=== PATIENT | female | born 1945 | race Caucasian/White ===

== ENCOUNTER 2023-09-26 14:36 | Outpatient (CLI) | payer MEDICARE, SELFPAY ==
--- NOTE | ~2023-09-26 | CT_ITS ---
EXAMINATION: CT abdomen pelvis wo con DATE: 09/26/2023 15:01 INDICATION: Right lower quadrant abdominal pain. TECHNIQUE: Computed tomography (CT) of the abdomen and pelvis was performed without intravenous contr ast. Automated exposure control and iterative reconstruction technique were employed. The dose-length product was 240.16 mGy-cm. COMPARISON: None. FINDINGS: The visualized portions of the lung bases demonstrate mild atelectasis. Calcified left lung nodules are consistent with old granulomatous disease. No pleural effusion. The heart size is normal . There are coronary artery calcifications. There is a small pericardial effusion. The liver and gall bladder are normal. Calcifications in the spleen are consistent with old granulomatous disease. The p ancreas and adrenal glands are normal. There is mild atrophy of the kidneys. There is a 2 mm stone in right kidney. There are no dilated loops of bowel. The appendix is normal. There is calcified athero sclerosis of the aorta and many of the other arteries. There are no pathologically enlarged lymph nod es. There is no free intraperitoneal fluid. There is lumbar levoscoliosis. There is severe lumbar spo ndylosis. IMPRESSION: 1. No etiology for the patient's symptoms. Reviewed, dictated and finalized at location A.
== END 2023-09-26 14:37 ==
LOC: MICIMG 14:40
PROVIDERS: PCP Urology; Visit Provider Urology
DX: R10.31 Right lower quadrant pain (principal)
CPT/HCPCS: 74176

== ENCOUNTER 2024-07-31 18:57 | Emergency (ER) | payer MEDICARE, SELFPAY ==
--- NOTE | ~2024-07-31 | XR_ITS ---
XR chest 1V portable Ordering provider: Mariela Drake MD History: 79 years Female with . Chest Pain . Comparison: None. FINDINGS: MEDIASTINUM: The cardiac silhouette is not enlarged. LUNGS: No infiltrates, effusions or pneumothorax. OTHER: No free air under the diaphragm. Degenerative changes of the spine. IMPRESSION: No acute cardiopulmonary pathology. Reviewed, dictated and finalized at location A.
--- NOTE | ~2024-07-31 | CT_ITS ---
CT abdomen pelvis w con Ordering provider: Mariela Drake MD History: 79 years Female with . epigastric pain . Comparison: September 26, 2023 Technique: CT abdomen and pelvis with IV and without oral contrast. Automated exposure control and it erative reconstruction technique were employed. The dose-length product was 217.69 mGy-cm. 100 mL Omn ipaque 350 was given IV. Findings: VISUALIZED LOWER CHEST: Dependent atelectatic changes. Left Pleural base nodule measuring 7.6 mm is n oted which may be atelectatic or nodule. [address] follow-up advised. Mild to moderate Pericardial effusion is noted. UPPER ABDOMINAL ORGANS: Liver: Normal. Gallbladder: Contracted. CBD measures 8.8 mm. Spleen: Normal. Calcified granulomas. Stomach/duodenum: Normal. Pancreas: Normal. Slightly prominent Pancreatic duct. Adrenals: Normal. Kidneys: Scarring is seen in the left kidney. Prominent vessels seen extending from the left left kid charley to the left iliac artery. Scarring also seen in the right kidney. Minimal fullness of the right r enal pelvis is noted. Tiny calcification seen in the right kidney midpole. PELVIC ORGANS: The bladder is underfilled with thickened wall. BOWEL AND MESENTERY: Colon: Mild sigmoid diverticulosis without diverticulitis. Normal appendix. Small Bowel: Normal. No obstruction. Peritoneum/mesentery: No free air or free fluid. No mesenteric lymphadenopathy. RETROPERITONEUM: Mild atheromatous disease of the abdominal aorta. No retroperitoneal lymphadenopat hy. Congested inferior vena cava is noted. MUSCULOSKELETAL: Superficial soft tissues: The superficial soft tissues are normal. Bones: Age appropriate degenerative changes of the spine. Mild levoscoliosis. Pubic symphysitis. IMPRESSION: 1. Tont-vi-qqootchc pericardial effusion. 2. Nodule in the left lower lobe. 6 months follow-up CT advised. 3. Bilateral scarring in the kidneys. Collateral arteries seen in the left kidney area extending to the left common iliac artery. 4. Slight fullness of the right renal pelvis with parenchymal tiny stone in the midpole of the kidne y. 5. Congested inferior vena cava. Reviewed, dictated and finalized at location A. IMPRESSION: 1. Utzs-yb-yumjhsin pericardial effusion. 2. Nodule in the left lower lobe. 6 months follow-up CT advised. 3. Bilateral scarring in the kidneys. Collateral arteries seen in the left kid charley area extending to the left common iliac artery. 4. Slight fullness of the right renal pelvis with parenchymal tiny stone in th e midpole of the kidney. 5. Congested inferior vena cava.
[2024-07-31 18:55] VITALS: BP 150/62; PULSE 86; RESP 13; TEMP 37.2; O2SAT 100
[2024-07-31 19:49] LABS: Eosinophils Absolute Auto 0.1 K/mm3 (0-0.3); Eosinophils Percent Auto 2.8 % (0-4.4); Hematocrit 36.5 % (37.0-47.0); Hemoglobin 11.1 g/dL (12.0-15.0); Immature Granulocyte Absolute 0.01 K/mm3 (0.00-0.031); Immature Granulocyte Percent A 0.3 % (0-0.5); Lymphocytes Absolute Auto 1.28 K/mm3 (0.9-3.2); Lymphocytes Percent Auto 32.7 % (18.3-44.2); Mean Corpuscular HGB Conc 30.4 g/dl (32-36); Mean Corpuscular Hemoglobin 27.5 pg (26-34); Mean Corpuscular Volume 90.6 fl (80-100); Mean Platelet Volume 11.1 fl (7.4-10.4); Monocytes Absolute Auto 0.4 K/mm3 (0.1-0.6); Monocytes Percent Auto 9.7 % (2.6-8.5); Neutrophils Absolute Auto 2.1 K/mm3 (1.3-6.7); Neutrophils Percent Auto 53.5 % (45.5-73.1); Platelet Count Result 142 k/mm3 (150-375); Red Blood Count 4.03 M/mm3 (4.2-5.4); Red Cell Distribution Width 12.7 % (11.5-14.5); White Blood Count 3.9 K/mm3 (4.5-10.0)
[2024-07-31 20:01] LABS: Alanine Aminotransferase 16 U/L (6-35); Albumin Level 3.9 g/dL (3.5-5.1); Alkaline Phosphatase 74 U/L (38-126); Anion Gap 6 mmol/L (4-12); Aspartate Amino Transferase 26 U/L (14-36); Bilirubin,Total 0.2 mg/dL (0.2-1.3); Blood Urea Nitrogen 24 mg/dL (7-17); Calcium 9.2 mg/dL (8.4-10.2); Carbon Dioxide 31 mmol/L (22-30); Chloride 105 mmol/L (98-107); Estimated CRCL calculation 26 ml/min; Estimated Glomerular Filt Rate 39; Glucose 107 mg/dL (65-110); Lipase 161 U/L (23-300); Magnesium 2.1 mg/dL (1.6-2.3); Potassium 4.3 mmol/L (3.4-5.0); Sodium 142 mmol/L (137-145)
--- NOTE | 2024-07-31 20:02 | ECG_ITS ---
Test Date: 2024-07-31 20:25:21 Measurements Intervals [place] Rate: 74 P: 76 MN: 159 QRS: -2 QRSD: 88 T: 49 QT: 369 QTc: 410 Interpretive Statements SINUS RHYTHM No previous ECG available for comparison Electronically Signed On 08-01-2024 11:46:30 CDT by Isis Villarreal M.D.
[2024-07-31 20:12] LABS: Troponin I < 0.012 ng/mL (0.000-0.034)
--- NOTE | 2024-07-31 20:30 | ED_ITS ---
HPI - Abdominal Pain General Chief Complaint: Abdominal Pain Stated Complaint: WEAKNESS AFTER INDIGESTION/CP Time Seen by Provider: 07/31/24 19:23 History of Present Illness HPI narrative: Patient is a 79-year-old female who presents to the emergency department this evening complaining of generalized weakness and epigastric pain. Patient states that she has been having these symptoms for the past 2-3 months but has noticed that recently these episodes have been more frequent. Patient describes the episode as esophageal spasms lasting a few seconds. States that it is usually worse after eating and does complain of indigestion. Patient has tried taking Tums without any relief. She also takes omeprazole, gasX and Claritin to help with her acid reflux. Patient admits to history of hiatal hernia, otherwise, patient is denying any active chest pain or shortness of breath but admits that when she has esophageal spasm episodes she does feel like it is harder for her to breathe. No additional symptoms or concerns at this time. Review of Systems 2 Review of Systems: All systems are reviewed and are negative unless stated otherwise in the HPI. Exam 2 Narrative: General: Alert, awake, afebrile, in no acute distress. HEENT: PERRL, no rhinorrhea, no post nasal drip, oropharynx clear. Neck: Trachea midline, no JVD, no lymphadenopathy. Cardiovascular: Regular rate and rhythm, no murmurs, rubs or gallops, no peripheral edema. Respiratory: Clear to auscultation bilaterally, no tachypnea, no wheezing, no rhonchi, no rubs, no respiratory distress. Abdomen: Soft, nontender, nondistended, no rebound, no guarding, no peritoneal signs. Musculoskeletal: No joint swelling or deformity, normal muscle tone. Skin: No rashes or petechia, no signs of infection. Psychiatric: Alert and oriented, normal behavior and judgment for situation. Neurological: Alert and oriented to person, place, and time. Follows all commands. No focal deficits, speech is clear and fluent. Course Vital Signs Vital signs: Vital Signs Temperature 98.9 F 07/31/24 18:55 Pulse Rate 86 07/31/24 18:55 Respiratory Rate 13 07/31/24 18:55 Blood Pressure 150/62 H 07/31/24 18:55 Pulse Oximetry 100 07/31/24 18:55 Oxygen Delivery Room Air 07/31/24 18:55 Temperature 98.9 F 07/31/24 18:55 Pulse Rate 88 07/31/24 23:14 Respiratory Rate 14 07/31/24 23:14 Blood Pressure 163/81 H 07/31/24 23:14 Pulse Oximetry 98 07/31/24 23:14 Oxygen Delivery Room Air 07/31/24 18:55 MDM - Abdominal Pain MDM Narrative Medical decision making narrative: The patient was evaluated by myself in the emergency department. History is obtained from patient who is an independent historian and physical exam was performed. External medical records were reviewed at this time. IV was established and pertinent tests were ordered. EKG was obtained which revealed sinus rhythm rate of 74 beats per minute, no evidence of acute ischemia. EKG was independently interpreted by me and is currently pending official cardiology read. Laboratory results obtained revealing no acute process. Imaging studies obtained included CT abdomen pelvis with IV contrast which was independently interpreted by me revealing: IMPRESSION: 1. Nwov-vz-msefdbfa pericardial effusion. 2. Nodule in the left lower lobe. 6 months follow-up CT advised. 3. Bilateral scarring in the kidneys. Collateral arteries seen in the left kidney area extending to the left common iliac artery. 4. Slight fullness of the right renal pelvis with parenchymal tiny stone in the midpole of the kidney. 5. Congested inferior vena cava. CXR was also obtained and blood interpreted by me revealing no evidence of acute cardiopulmonary process. Patient was informed of these findings at bedside. Family members including patient's and son are also present at bedside. A printout of her CT report was provided to the family members. Patient was informed that her symptoms are likely due to esophageal narrowing/spasms which son is in agreement with. Sinus super frustrated states that they have seen a electrical power station technician in [place] who wanted her to have CT scans performed which the son states that they were not scheduled for 4 more weeks any refused to wait this long to have her evaluated. Family members are not happy with the care that they received at this GI doctor and I did inform him that I will be providing them the information for one of our electrical power station technician to follow up with. Patient was also informed that she will need to follow-up with the crab fisherman regarding her pericardial effusion and that she will be provided with a referral and patient is in agreement. Differential diagnosis considerations include hiatal hernia, peptic ulcer disease, biliary colic, achalasia. Comorbidities impacting this visit include none. I have evaluated and discussed social determinants of health with the patient that could potentially impact subsequent diagnosis and treatment plans. On repeat assessment of the patient, reevaluation revealed that the patient is doing well and is in no acute distress. Patient symptoms have remained stable since she arrived to our emergency department. Repeat vital signs were all reviewed and noted to be stable. Differential diagnosis and treatment plan were discussed with the patient at bedside. Patient agrees with discussion and after shared medical decision making agrees with discharge. All questions were answered to the patient's satisfaction. Patient will follow up with GI with Dr. Bahena in 3-5 days. Patient was provided with strict return precautions and instructed to return to the emergency department if any new or worsening symptoms develop. The patient was discharged in stable condition. Lab Data 07/31/24 19:44 07/31/24 19:45 Labs: Lab Results 07/31/24 07/31/24 07/31/24 Range/Units 19:44 19:45 21:50 WBC 3.9 L (4.5-10.0) K/mm3 RBC 4.03 L (4.2-5.4) M/mm3 Hgb 11.1 L (12.0-15.0) g/dL Hct 36.5 L (37.0-47.0) % MCV 90.6 (80-100) fl MCH 27.5 (26-34) pg MCHC 30.4 L (32-36) g/dl RDW 12.7 (11.5-14.5) % Plt Count 142 L (150-375) k/mm3 MPV 11.1 H (7.4-10.4) fl Immature Gran % (Auto) 0.3 (0-0.5) % Neut % (Auto) 53.5 (45.5-73.1) % Lymph % (Auto) 32.7 (18.3-44.2) % [place] % (Auto) 9.7 H (2.6-8.5) % Eos % (Auto) 2.8 (0-4.4) % Baso % (Auto) 1.0 (0.2-1.2) % Lymph # (Auto) 1.28 (0.9-3.2) K/mm3 [place] # (Auto) 0.4 (0.1-0.6) K/mm3 Eos # (Auto) 0.1 (0-0.3) K/mm3 Baso # (Auto) 0.0 (0.0-0.1) K/mm3 Abs Immat Gran (auto) 0.01 (0.00-0.031) K/mm3 Absolute Neuts (auto) 2.1 (1.3-6.7) K/mm3 Absolute Nucleated RBC 0.000 (0.0-0.012) K/mm3 Nucleated RBC % 0.0 (0.0-0.2) % Sodium 142 (137-145) mmol/L Potassium 4.3 (3.4-5.0) mmol/L Chloride 105 (98-107) mmol/L Carbon Dioxide 31 H (22-30) mmol/L Anion Gap 6 (4-12) mmol/L BUN 24 H (7-17) mg/dL Creatinine 1.31 H (0.7-1.0) mg/dL Estim Creat Clear Calc 26 ml/min Estimated GFR 39 L (59 - ) Glucose 107 (65-110) mg/dL Calcium 9.2 (8.4-10.2) mg/dL Magnesium 2.1 (1.6-2.3) mg/dL Total Bilirubin 0.2 (0.2-1.3) mg/dL AST 26 (14-36) U/L ALT 16 (6-35) U/L Alkaline Phosphatase 74 (38-126) U/L Troponin I < 0.012 (0.000-0.034) ng/mL Total Protein 6.0 L (6.3-8.2) g/dL Albumin 3.9 (3.5-5.1) g/dL Lipase 161 (23-300) U/L Urine Color Yellow (Yellow) Urine Appearance Cloudy H (Clear) Urine pH 7.5 (5.0-9.0) Ur Specific Chloride 1.041 H (1.001-1.035) Urine Protein Negative (Negative) mg/dL Urine Glucose (UA) Negative (Negative) mg/dL Urine Ketones Negative (Negative) mg/dL Ur Blood (Man) Negative (Negative) Urine Nitrate Negative (Negative) Urine Bilirubin Negative (Negative) Urine Urobilinogen 1.0 (<2.0) mg/dL Add Ur Microanalysis Reviewed Leukocyte Esterase Rfl 1+ H (Negative) KEITH/UL Urine RBC 0-2 (0-2) /hpf Urine WBC 0-5 (0-3) /hpf Ur Squamous Epith Cells None seen (Few) /hpf Urine Bacteria None seen /hpf Urine Casts 0-2 Imaging Data Radiologist's impression: ITS Impressions Chest X-Ray 07/31/24 20:04 IMPRESSION: No acute cardiopulmonary pathology. Abdomen/Pelvis CT 07/31/24 22:07 IMPRESSION: 1. Ewtn-iu-viduvedh pericardial effusion. 2. Nodule in the left lower lobe. 6 months follow-up CT advised. 3. Bilateral scarring in the kidneys. Collateral arteries seen in the left kidney area extending to the left common iliac artery. 4. Slight fullness of the right renal pelvis with parenchymal tiny stone in the midpole of the kidney. 5. Congested inferior vena cava. Discharge Plan Discharge Clinical Impression: Diffuse esophageal spasm, Epigastric pain Patient Disposition: Home Condition: Stable Instructions: Antibiotic Form, Esophageal Spasm (ED), Epigastric Pain (ED) Additional Instructions: Please follow-up with the GI doctor you were provided with today, call on Saturday to set up a follow-up appointment to be seen within the next 3-5 days. Return to the ED if any new or worsening symptoms develop. You also provided with a Cardiology referral instructed to call on Saturday to set up a follow-up appointment regarding your pericardial effusion. Patient Language: Vietnamese Follow-up/Referrals: Brent Islas MD [Primary Care Provider] - Best Shaikh MD [Physician] - 1 Week Beka Liao MD [Physician] - 3 Days Time of Disposition: 23:15
[2024-07-31 22:09] LABS: Add Urine Microscopic? YES; Appearance Urine Cloudy (Clear); Bacteria Urine None Seen /hpf; Bilirubin Urine Negative (Negative); Blood Urine Negative (Negative); Color Urine Yellow (Yellow); Glucose Urine UA Negative (Negative); Ketones Urine Negative (Negative); Leukocyte Esterase Ur 1+ LEU/UL (Negative); Need Manual Microscopic Reviewed; Nitrate Urine Negative (Negative); Non Pathogenic Casts 0-2; Protein Urine Negative (Negative); RBC Urine 0-2 /hpf (0-2); Specific Grav Ur 1.041 (1.001-1.035); Squamous Epithelial Cell Urine None Seen /hpf (Few); WBC Urine 0-5 /hpf (0-3); pH Urine 7.5 (5.0-9.0)
[2024-07-31 23:14] VITALS: BP 163/81; PULSE 88; RESP 14; O2SAT 98
--- OUTSIDE RECORDS SUMMARY | 2024-08-01 15:17 | XMS_ITS | Encounter Summary ---
Author Organization [facility] Healthcare Address [address] [place] [address] Care Team Providers Care Safety And Occupational Health Manager Name Role Phone Zayra Ramsey MD PhD Unavailable [phone] Federico Celaya MD Primary Care Provider + Encounter Details Date Type Department Care Team (Late st Contact Info) Description 07/30/2024 Telephone [facility] Gastroenterology at [address] [place] [address] Paris Gregory LPN Social History Tobacco Use Types Packs/Day Years Used Date Smoking Tobacco: Never Smokeless Tobacco: Never AUDIT-C Answer Date Recorded Q1: How often do you have a drink containing alcohol? Never 07/21/2024 Q2: How many drinks containi ng alcohol do you have on a typical day when you are drinking? Patient does not drink Q3: How often do you have si x or more drinks on one occasion? Never 07/21/2024 PHQ-2 Answer Date Recorded PHQ-2 Total Score (If total score is 3 or more points, staff should administer the PHQ-9) 0 02/13/2024 Comments No Sex and Gender Information Value Date Recorded Sex Assigned at Not on file Legal Sex Female 2:58 PM [employer]INE [employer] Gender Identity Not on file Sexual Orientation Not on file documented as of this encounter Miscellaneous Notes * Telephone Encounter - Paris Gregory LPN - 07/30/2024 10:08 AM CDT Spoke with pt spouse (Carrington) to get colonoscopy moved up form 09-07-24 to 5-09-23 at 1000 pt spouse will have son call up to confirm this time or keep procedure a scheduled documented in this encounter Plan of Treatment Upcoming Encounters Date Type Department Care Team (Late st Contact Info) Description 09/07/2024 12:30 PM CDT Hospital Encounter [address] [address] Tristin Whiteside, DO [address] [facility] [address] [place] [id number] 09/07/2024 12:30 PM CDT - 09/07/2024 1:20 PM CDT Surgery [address] [address] Tristin Whiteside DO [address] [facility] [address] [place] [id number] COLONOSCOPY Scheduled Procedures Name Priority Associated Diagnoses Date/Ti me COLONOSCOPY Gastroesophageal reflux disease, unspecified whether esophagitis present Belching Chest pain, unspecified type Hx of colonic polyps 09/07/2024 12:30 PM CDT ESOPHAGOGASTRODUODENOSCOPY Gastroesophageal reflux disease, unspecified whether esophagitis present Belching Chest pain, unspecified type Hx of colonic polyps 09/07/2024 12:30 PM CDT documented as of this encounter Visit Diagnoses Not on filedocumented in this encounter Care Teams Safety And Occupational Health Manager Relationship Specialty Start Date End Date Federico Celaya MD [address] [address] PCP - General Family Medicine 01/02/23 Zayra Ramsey MD PhD [address] [place] [address] Referring Physician Neurology 02/07/21 documented as of this encounter
--- OUTSIDE RECORDS SUMMARY | 2024-08-01 15:17 | XMS_ITS | Referral Summary ---
Author Organization [facility] Address [address] [place] [address] Care Team Providers Care Summer Babysitter Name Role Phone Zayra Ramsey MD PhD Unavailable [phone] Federico Celaya MD Primary Care Provider + Encounters Date Type Department Care Team Description 07/31/2024 Telephone [facility] Gastroenterology at [address] [place] [address] Paris Gregory LPN 07/30/2024 Telephone [facility] Gastroenterology at [address] [place] [address] Paris Gregory LPN 07/29/2024 Telephone [facility] Gastroenterology at [address] [place] [address] Julia Resendez MA 07/28/2024 Telephone [facility] Gastroenterology at [address] [place] [address] Ca Emery MA 07/21/2024 Telephone [facility] Gastroenterology at [address] [place] [address] Paris Gergory LPN 07/21/2024 Telephone [facility] Primary Care [address] [place] [address] [address] [place] [address] Federico Celaya MD Medical Question/Miscellaneo us 07/21/2024 2:30 PM CDT Office Visit [facility] Gastroenterology at [address] [place] [address] Tristin Whiteside, Atypical chest pain (Primary Dx); Belching; Gastroesophageal reflux disease, unspecified whether esophagitis present; Adenomatous polyp of colon, unspecified part of colon; Family history of colon cancer; Chronic idiopathic constipation 06/26/2024 Telephone [facility] Primary Care [address] [facility] [address] [place] [address] Federico Celaya MD Referral Request 05/18/2024 9:30 AM DIRECTOR OF DIGITAL TECHNOLOGY Office Visit [facility] [address] [facility] 6th [address] [place] [id number] Anthony Blakely NP Alzheimer's disease (HCC) (Primary Dx) from Last 3 Months Allergies Active Allergy Reactions Criticality Noted Date Comments Bacitracin Other (See comments) Low Reaction: gu skin, , Reaction: gu skin, Codeine Hives,Rash Medium Reaction: Hives, Skin Rash, Iron Rash Medium Reaction: Rash, Levofloxacin Swelling High Reaction: swelling, Levofloxacin In D5w Anaphylaxis,Swellin g High 03/28/2017 Neomycin Other (See comments) Low Reaction: gu skin, Polymyxin B Other (See comments) Low Reaction: gu skin, Pozbhmm-Idv-Vyw Reductase Inhibitors Mental status changes Low 10/08/2018 Intolerant of multiple cholesterol medications. Sulfa (Sulfonamide Antibiotics) Nausea only,Vomiting Low Reaction: Nausea, Vomiting, Medications ibuprofen (ADVIL,MOTRIN) 200 mg tab/cap Take 1 tablet/caps ule (200 mg total) by mouth every 6 (six) hours as needed 3 Active acetaminophen (TYLENOL) 500 mg tablet Take 1-2 tablets (500-1,000 mg total) by mouth every 8 (eight) hours as needed 3 Active polyethylene glycol (MIRALAX) 17 gram/dose bulk powderIndications :Chronic idiopathic constipation Take 17 g by mouth daily 289 g 3 4 Active lisinopriL (PRINIVIL,ZESTRIL ) 5 mg tabletIndications :Essential hypertension Take 1 tablet (5 mg total) by mouth daily 90 tablet 4 4 09/10/19 25 Active donepeziL (ARICEPT) 5 mg tablet Take 1 tablet (5 mg total) by mouth nightly 90 tablet 3 5 Active famotidine (PEPCID) 40 mg tablet Take 1 tablet (40 mg total) by mouth nightly 90 tablet 3 5 07/22/[address] (PROTONIX) 40 mg EC tabletIndications :Gastroesophageal reflux disease without esophagitis Take 1 tablet (40 mg total) by mouth 2 (two) times a day 60 tablet 11 5 07/30/19 26 Active cgjognednpar-Qu-k sarah-minerals (ESSENTIAL DAILY) 18-0.4 mg tablet take 1 tablet by oral route every day 0 0 7 07/22/19 25 Discontinu ed(Patient Reported) donepeziL (ARICEPT) 5 mg tablet Take 1 tablet (5 mg total) by mouth nightly 90 tablet 3 4 07/22/19 25 Discontinu ed(Reorder ) Active Problems Problem Noted Date Diagnosed Date Gastroesophageal reflux disease 07/21/2024 Belching 07/21/2024 Chest pain 07/21/2024 Hx of colonic polyps 07/21/2024 Nocturnal muscle cramps 02/13/2024 Assessment & Plan (02/13/2024 7:29 AM DIRECTOR OF DIGITAL TECHNOLOGY): - encouraged magnesium use daily - check labs Encounter for annual wellness exam in Medicare p atient 01/30/2023 Assessment & Plan (02/13/2024 7:29 AM DIRECTOR OF DIGITAL TECHNOLOGY): - Reviewed with the patient BMI, blood pressure, diet, exercise, and encouraged healthy lifestyle choices. - Screened for high risk behaviors, diet and exercise habits, and symptoms of depression. - check screening labs - encouraged regular exercise, healthy lifestyle, obtain/maintain healthy weight Assessment & Plan (01/30/2023 10:10 AM CDT): - Reviewed with the patient BMI, blood pressure, diet, exercise, and encouraged healthy lifestyle choices. - Screened for high risk behaviors, diet and exercise habits, and symptoms of depression. - reviewed screening labs - encouraged regular exercise and healthy lifestyle Chronic idiopathic constipation 01/02/2023 Assessment & Plan (09/10/2023 2:35 PM CDT): - uncontrolled - miralax daily Assessment & Plan (01/02/2023 9:15 AM CDT): - uncontrolled - miralax daily Chronic bilateral low back pain with right-sided sciatica 05/19/2022 Assessment & Plan (02/13/2024 7:29 AM DIRECTOR OF DIGITAL TECHNOLOGY): - stable SI joint pain, likely due to OA combined with muscle spasms - rec scheduled tylenol 1000mg tid Assessment & Plan (01/02/2023 9:14 AM CDT): - stable - continue current medication Assessment & Plan (08/02/2022 11:16 AM CDT): She saw [facility] earlier this year. X-rays showed some degenerative changes in her lower back. Nothing is really changed. Pain seems worse at night when she lies down. She denies urinary symptoms such as hematuria. She denies change in bowel habits or blood in her stool. There is no radiation of the pain down her leg. She takes ibuprofen as needed. Zanaflex also helps a little bit. Assessment & Plan (06/12/2022 8:39 AM CDT): She is doing s o much better. She denies sciatic radiation of pain at this time. Neurological exam is normal except for an absent right ankle jerk. She is taking some Advil along with her tizanidine. We discussed the risks of medication. We suggested Tylenol in preference to Advil. Follow-up early as needed, otherwise in two months as scheduled. Assessment & Plan (05/19/2022 11:18 AM DIRECTOR OF DIGITAL TECHNOLOGY): Chronic problem, reportedly present times about 2 months Physical examination as documented - no signs/symptoms of serious illness noted Suspect likely lumbar radiculopathy with sciatica based on history and physical examination Recommended steroids and muscle relaxants at this time - patient agreeable to plan Orders for [facility] STAFF to arrange Xray lumbar spine - chronic low back pain with right sided sciatica Orders for Sharron Lucas to arrange Start Medrol dose pack as ordered - complete course, take with food to prevent stomach upset Start tizanidine as ordered Continue Advil as needed Consider ice/heat as needed Consider formal PT referral for low back stretching/strengthening exercises Continue monitoring symptoms - report persistent or worsening symptoms to the office or go to ER Call office on Saturday with an update Follow up as scheduled with Dr. Hess or sooner if necessary Abdominal pain 04/01/2022 Assessment & Plan (01/02/2023 9:15 AM CDT): - positive UA so will tx for UTI - suspect also some constipation causing pain based on pt hx - will tx constipation with miralax - f/u in 1 mo, if sx continue will consider eval for other causes of pain Assessment & Plan (08/02/2022 11:17 AM CDT): Right flank pain and chronic lower back symptoms are about the same, reasonably well controlled with nonsteroidal and muscle relaxer taken as needed. Assessment & Plan (05/31/2022 4:01 PM DIRECTOR OF DIGITAL TECHNOLOGY): She has some pain or discomfort in the upper gluteal area, but no definite flank pain at this time. She denies any urinary symptoms such as dysuria or hematuria. When her back pain was more acute, she had a little trouble initiating urination, but that has resolved. There is no CVA tenderness on exam. We are deferring any evaluation of her urine symptoms since everything seems to be improving with treatment of her back problem. Severe obstructive sleep apnea 05/07/2021 Overview (05/30/2021): See scanned report from [place]. Assessment & Plan (01/30/2023 10:10 AM CDT): - stable - continue CPAP Assessment & Plan (08/02/2022 11:18 AM CDT): She is intolerant of CPAP treatment. Assessment & Plan (02/02/2022 10:42 AM CDT): As part of her evaluation for dementia, she had a sleep study that showed severe obstructive sleep apnea. CPAP was ordered, but she is totally intolerant of any mask or nasal pillows and refuses to wear it. Assessment & Plan (08/20/2021 7:44 AM CDT): She had severe sleep apnea on a sleep study ordered by the [facility]. She started on CPAP and had trouble with the first mask, but is doing better on an alternative mask. Some nights are still difficult and she only wears it for 2 hours, but she says she wore the mask for about 7 hours last night. She will keep her follow ups with sleep medicine. Alzheimer's disease 02/07/2021 Assessment & Plan (05/18/2024 10:14 AM DIRECTOR OF DIGITAL TECHNOLOGY): Overall, stable cognitive testing. Continue donepezil/Aricept 5 mg daily. We spoke of starting a low dose antidepressant such as escitalopram/Lexapro to help with her behavioral changes. Family would like to think about it and will reach out if they wish to start her on it. Follow-up in 6 months or sooner if need be. Assessment & Plan (02/13/2024 7:28 AM DIRECTOR OF DIGITAL TECHNOLOGY): - stable - continue aricept Assessment & Plan (12/26/2023 8:37 AM CDT): Continue donepezil/Aricept 5 mg daily. We discussed increasing this but family would like to hold off for now. They will reach out if they decide to increase it. We briefly discussed lecanemab/Leqembi and the START study but patient and family members are not interested. Follow-up scheduled in May 2024. Assessment & Plan (09/10/2023 2:35 PM CDT): - stable - continue aricept Assessment & Plan (07/31/2023 9:59 AM CDT): - stable - continue aricept Assessment & Plan (01/30/2023 10:10 AM CDT): - stable - continue current medication Assessment & Plan (01/02/2023 9:14 AM CDT): - stable - continue current medication Assessment & Plan (08/02/2022 11:15 AM CDT): She is pleasant, speech is fluent, affect is normal. Both she and her think the Aricept has slowed memory loss slightly. We will see her back in six months. Assessment & Plan (02/02/2022 10:37 AM CDT): She was evaluated at the memory clinic. She is on Aricept and she thinks her memory is improved although her does not. We will continue supportive care. Assessment & Plan (08/02/2021 9:40 AM CDT): She went to the memory clinic at [facility]. She was diagnosed with Alzheimer's dementia. It was probably aggravated by severe obstructive sleep apnea, see discussion elsewhere. In general, she seems to be doing pretty well on donepezil 5 mg daily. Her speech seems more natural, definitely fluent, she seems to recall things little better, is less hesitant in responses. Her says there are s till issues. Continue current therapy including supportive care. Bilateral carotid bruits 10/08/2018 Overview (10/11/2018): Carotid Doppler on 10/10/18 at [facility]: No sonographic evidence of significant stenosis or turbulence in either carotid artery system. Assessment & Plan (10/08/2018 9:30 AM CDT): She has faint bilateral carotid bruit, especially on the right side where it is one over six and occurs early during systole. Carotid upstrokes are normal bilaterally. We will check carotid Dopplers and proceed accordingly. Polyp of sigmoid colon 04/12/2017 Overview (04/13/2017): See colonoscopy report, [facility]. Assessment & Plan (10/30/2020 3:46 PM CDT): She had transverse colon tubular adenoma, and 3 sigmoid hyperplastic polyps, biopsied/removed by Dr. Whiteside at [facility] in 2019. A follow-up will be due in 2023. She denies problems with her bowels. Mixed hyperlipidemia 07/05/2016 Assessment & Plan (02/13/2024 7:28 AM DIRECTOR OF DIGITAL TECHNOLOGY): - stable - continue diet control Assessment & Plan (09/10/2023 2:35 PM CDT): - stable - continue diet control Assessment & Plan (07/31/2023 9:59 AM CDT): - stable - continue diet control Assessment & Plan (01/30/2023 10:10 AM CDT): - stable - continue diet control Assessment & Plan (08/02/2022 11:17 AM CDT): She is intolerant of statins. We will check lipids again before her next visit to give her feedback on her diet. Assessment & Plan (02/02/2022 10:40 AM CDT): She is not taking anything for her lipids. We will check follow-up labs to give her feedback on her diet. Assessment & Plan (08/02/2021 9:39 AM CDT): She is intolerant of statins. We will check follow-up lipids before her next visit to give her feedback on her diet. Assessment & Plan (02/01/2021 9:13 AM CDT): She is not currently taking anything for lipids. She is intolerant of statins which would be the recommendation for primary prevention. We will monitor labs periodically to give her feedback on her diet. Assessment & Plan (10/27/2020 3:47 PM CDT): Her lipids are largely unchanged. She has tried multiple lipid lowering medicines in the past and was intolerant, but is willing to try a low-dose of a statin again. We discussed the risks of medications. We will check liver enzymes about a month into therapy. She will call if she has severe myalgias. Follow-up in three months. Lab Results Component Value Date CHOL 242 (H) 10/19/2020 CHOL 255 (H) 10/14/2019 CHOL 239 (H) 10/10/2018 Lab Results Component Value Date HDL 42 10/19/2020 HDL 42 10/14/2019 HDL 37 (L) 10/10/2018 Lab Results Component Value Date LDLCALC 174 (H) 10/19/2020 LDLCALC 190 (H) 10/14/2019 LDLCALC 179 (H) 10/10/2018 LDL 166 (H) 07/04/2016 Lab Results Component Value Date TRIG 129 10/19/2020 TRIG 117 10/14/2019 TRIG 116 10/10/2018 Assessment & Plan (10/30/2020 3:46 PM CDT): Her cholesterol numbers are moderately unfavorable. We discussed this at her last visit, but she did not want to take a medication, and is still reluctant to do so. She has been working on her diet. We will check a follow-up lipid panel to see how she is doing. Assessment & Plan (10/25/2019 2:59 PM CDT): She has moderate hyperlipidemia and a 10 year cardiovascular risk of about 18- 19%. She is intolerant of statins which caused mental status changes. We discussed cardiovascular risk reduction with a low saturated fat diet. Assessment & Plan (10/08/2018 9:30 AM CDT): She is intolerant of multiple cholesterol lowering medications, including statins. She is trying to control this with diet. We will check a follow-up lipid profile to see how she is doing. Assessment & Plan (10/04/2017 9:11 AM CDT): Her cholesterol numbers were not the greatest when checked last year, but she is reluctant to take any medication. She is working on her diet. Continue same and consider a follow-up profile at her next appointment. Essential hypertension 07/04/2016 Overview (08/24/2016): Hypertension Assessment & Plan (02/13/2024 7:27 AM DIRECTOR OF DIGITAL TECHNOLOGY): - well controlled - since very well controlled, will stop HCTZ to help with muscle cramps Assessment & Plan (09/10/2023 2:35 PM CDT): - stable - continue lisinopril and HCTZ Assessment & Plan (07/31/2023 9:59 AM CDT): - stable - continue lisinopril and HCTZ but decrease lisinopril to 5mg daily - do home BP log - f/u in 6 mo or sooner if BP still low Assessment & Plan (01/30/2023 10:10 AM CDT): - stable - continue current medication Assessment & Plan (01/02/2023 9:14 AM CDT): - stable - continue current medication Assessment & Plan (08/02/2022 11:16 AM CDT): Blood pressure is in a good range on current therapy. Labs will be checked again before her next visit in six months. Assessment & Plan (02/02/2022 10:37 AM CDT): Blood pressure is well controlled on current therapy. Continue same, and follow- up in six months. Labs are due, so she will get those done in the next week or so. Assessment & Plan (08/02/2021 9:39 AM CDT): Pressure is well controlled on current therapy. She denies having chest pain or pressure or other new symptoms of concern. We will check a follow-up set of labs before her next visit in six months. Assessment & Plan (02/01/2021 9:11 AM CDT): Blood pressure is in a good range, towards the lower end of normal. She denies having any symptoms of concern including no chest pain, no dizziness or lightheadedness. We discussed possibly stopping one of her blood pressure medications, but the patient does not want to make any changes. I recommended that she check blood pressure at home a couple times a week and call with readings if there are any concerns about running too low or too high. Follow-up in 3-6 months. Assessment & Plan (10/27/2020 3:49 PM CDT): Blood pressure is in a good range on current therapy. Continue same and follow- up in three months. Assessment & Plan (10/19/2020 9:21 AM CDT): Blood pressure is in a good range on current therapy which she seems to be tolerating well. Will check some follow-up labs and see her back early as needed. Assessment & Plan (10/14/2019 9:18 AM CDT): Blood pressure today is in a good range. She does not check blood pressure at home, and I suggested that she could do so occasionally to make sure blood pressure remains in a normal range. We will check some follow-up labs and see her back annually. Assessment & Plan (10/08/2018 9:30 AM CDT): Blood pressure is in a good range. She has no new symptoms of concern. We will check some follow-up labs make sure kidney function, etc remain normal. Assessment & Plan (10/04/2017 9:10 AM CDT): She has been taking her medication and is tolerating it well. Blood pressure is in a good range. Labs were stable when last checked about a year ago. I do not see any compelling reason to repeat labs. We can see her back annually. History of radiofrequency ab lation (RFA) for complex left atrial arrhythmia 07/01/1999 Overview (08/24/2016): History of radiofrequency ablation operation on left atrium for arrhythmia Assessment & Plan (10/04/2017 9:10 AM CDT): There is a remote history of RFA ablation for atrial arrhythmia. She has done well. She has no new symptoms of concern such as chest pain. Cardiac exam is normal. Continue to monitor. Other dysphagia 09/29/1984 Overview (08/01/2022): Intermittent for years, saw a specialist. More recently since about 2019, notes more difficulty, chokes on cold water. Upper GI in January 2022 consistent with small hiatal hernia and rapid transit of contrast, otherwise no significant abnormalities. Assessment & Plan (02/17/2022 1:30 PM DIRECTOR OF DIGITAL TECHNOLOGY): She has had intermittent trouble swallowing for decades. About 40 years ago, she saw a specialist and was diagnosed with a hiatal hernia. She says they would not repair it because it was t oo close to the heart . For the past two years her dysphagia may have worsened. Her relates coughing fits after drinking water in the evening before bedtime. We suggested evaluation by speech therapy, but she declines and prefers a barium esophagram which we will arrange to make sure there is no major stricture or mass. Hiatal hernia 06/30/1984 Overview (10/14/2019): Intermittent symptomatic, saw a specialist, told it can't be repaired. Assessment & Plan (10/25/2019 2:58 PM CDT): She has an intermittently symptomatic hiatal hernia. She has had it for years. She initially thought symptoms started 15 years ago, but it is probably more like 30 years ago. She was seen by a specialist who told her that the hiatal hernia defect was too large to repair. Symptoms consist of occasional pain with swallowing, and the sensation of food getting stuck which clears when she drinks water. Symptoms have not progressed over time. She does not remember ever having an upper endoscopy. In view of stable symptoms and lack of weight loss, we will defer any additional evaluation for now. If symptoms get worse or progress, referral would be appropriate. Laryngitis 09/30/1958 Overview (02/02/2022): Recurring laryngitis since she was a young girl, lasts a few hours to days to a week, then resolves. Assessment & Plan (02/17/2022 1:29 PM DIRECTOR OF DIGITAL TECHNOLOGY): She developed some laryngitis this morning. Apparently it has been a recurring problem ever since she was a little girl . It lasts anywhere from a few hours to a week or so. 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 We will monitor clinically. Resolved Problems Problem Noted Date Diagnosed Date Resolved Date Dysuria 01/02/2023 09/10/2023 Assessment & Plan (01/02/2023 9:15 AM CDT): - pos UTI - macrobid x 5 days Memory problem 10/31/2019 01/28/2023 Overview (02/01/2021): Started during a prolonged cough illness that lasted from end of September 2019 through about January 2020. Cough resolved. Memory problems and brain fog persisted. Assessment & Plan (02/01/2021 9:12 AM CDT): She thinks her memory is doing better. She is certainly pleasant and interactive in the office. Speech is fluent. She does defer to her when asked where she got the second dose of SARS-CoV-2 vaccine. She is due to follow-up with the memory care specialists at [facility] on Saturday of this week. We will see what they have to say. Assessment & Plan (11/06/2020 5:22 PM CDT): We performed a basic evaluation including B12, TSH, CMP, and CT head, all of which are unremarkable except for mild small-vessel disease on the head CT. 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 Other causes are possible. We will refer her to the [facility] memory clinic for further evaluation and recommendations. Assessment & Plan (10/30/2020 3:48 PM CDT): She had a cough illness that started shortly after her last annual visit. It was associated with fatigue and malaise. She also developed b rain fog. Her and sons are concerned about memory impairment. She frequently repeats herself during the same conversation. She seems to have trouble concentrating. She does not drive much, but has not gotten lost driving. The patient herself admits to some of these problems. On exam, speech is fluent. Attention seems normal. Mini-mental status exam and trail test were performed in the office. She scored 28/28 on tests of immediate recall, short-term memory, and basic cognitive function. She failed the trail test. We will get appropriate labs and imaging, and refer her to the Memory Clinic at [facility]. Overweight 09/29/2018 08/01/2022 Overview (08/01/2022): Obesity -> overweight-> normal BMI as of 2021 Assessment & Plan (02/01/2021 9:14 AM CDT): She continues on a weight loss trend, and is now in a normal range. She does plan to go out for breakfast this morning for a [employer] sausage McMuffin. We discussed that high fat foods are not necessarily all that good for us. Assessment & Plan (10/14/2019 9:22 AM CDT): She is moderately overweight, nearly into the obese category. We recommended a weight loss diet. Assessment & Plan (10/08/2018 9:31 AM CDT): She continues to work on her weight. She would like to lose down to about 120 lb. We will follow-up periodically. Assessment & Plan (10/04/2017 9:11 AM CDT): Her weight is identical to her recent appointment two months ago. She is working on this. Continue efforts. Abnormal mammogram 08/24/2016 9 Overview (10/07/2018): See [facility] report. Follow-up at [facility] negative. Assessment & Plan (10/20/2017 1:05 PM CDT): About a year ago, she had a mammogram, and a six month follow-up was recommended but she said she had too much going on at that time with her family so she never went. She does agree to a follow-up mammogram, so we ordered this. We will arrange for appropriate referral if needed. Immunizations Immunization Administration Dates Next Due Influenza, Unspecified 01/02/2023(Deferr ed: Patient Refused),12/30/2021(Deferred: Patient Refused) Pfizer SARS-CoV-2 Monovalent Vaccination (12+ Yrs) PURPLE 11/16/2020,10/25/2020 Pneumococcal Conjugate Pcv20 01/02/2023(Deferred : Patient Refused) Social History Tobacco Use Types Packs/Day Years Used Date Smoking Tobacco: Never Smokeless Tobacco: Never Tobacco Cessation:Counseling Given: Not Answered AUDIT-C Answer Date Recorded Q1: How often [...] on file Legal Sex Female 2:58 PM DIRECTOR OF DIGITAL TECHNOLOGY Gender Identity Not on file Sexual Orientation Not on file Last Filed Vital Signs Vital Sign Reading Time Taken Comments Blood Pressure 153/77 07/21/2024 2:33 PM CDT Pulse 79 07/21/2024 2:33 PM CDT Temperature 36.4 C (97.6 F) 05/18/2024 8:58 AM DIRECTOR OF DIGITAL TECHNOLOGY Respiratory Rate 16 02/13/2024 6:58 AM DIRECTOR OF DIGITAL TECHNOLOGY Oxygen Saturation 96% 07/21/2024 2:33 PM CDT Inhaled Oxygen Concentration - - Weight 55.5 kg (122 lb 6.4 oz) 07/21/2024 2:33 P M CDT Height 160 cm (5' 3 ) 07/21/2024 2:33 PM CDT Body Mass Index 21.68 07/21/2024 2:33 PM CDT Plan of Treatment Upcoming Encounters Date Type Department Care Team (Late st Contact Info) Description 09/07/2024 12:30 PM CDT Hospital Encounter [facility] [address] [place] [address] Tristin Whiteside, [address] [facility] [address] [place] [address] 09/07/2024 12:30 PM CDT - 09/07/2024 1:20 PM CDT Surgery [address] [address] Tristin Whiteside, [address] [facility] [address] [place] [address] COLONOSCOPY Scheduled Procedures Name Priority Associated Diagnoses Date/Ti me COLONOSCOPY Gastroesophageal reflux disease, unspecified whether esophagitis present Belching Chest pain, unspecified type Hx of colonic polyps 09/07/2024 12:30 PM CDT ESOPHAGOGASTRODUODENOSCOPY Gastroesophageal reflux disease, unspecified whether esophagitis present Belching Chest pain, unspecified type Hx of colonic polyps 09/07/2024 12:30 PM CDT Procedures Procedure Name Priority Date/Time Associated Diagnosis Comments SCREENING MAMMOGRAM BILATERAL W SHABBIR Schedule Routine, Read Routine (OP Routine) 08/02/2022 12:08 PM CDT Breast cancer screening by mammogram DEXA AXIAL SKELETON BONE DENSITY 1 OR MORE SITES Schedule Routine, Read Routine (OP Routine) 10/21/2020 12:46 PM CDT Menopause HEPATITIS C ANTIBODY Routine 10/19/2020 9:58 AM CDT Annual visit for general adult medical examination with abnormal findings Essential hypertension Mixed hyperlipidemia HM COLONOSCOPY Routine 10/31/2018 from Last 3 Months or Most Recently Relevant to Health Maintenance Results * Screening Mammogram Bilateral W Shabbir (08/02/2022 12:08 PM CDT) Anatomical Region Laterality Modality Breast Bilateral Mammography Narrative 08/02/2022 4:12 PM CDT BILATERAL DIGITAL MAMMOGRAPHY with tomography. The present examination has been compared to prior imaging studies dated 10/19/2020, 08/24/2016, and 07/10/2016. Mammography Findings CAD (computer-aided detection) software was utilized. There are scattered fibroglandular densities that could obscure a lesion on mammography. No masses, significant calcifications or new abnormalities are seen. Few subcentimeter intramammary lymph nodes of the right breast are stable. Impression There is no mammographic evidence of malignancy. Screening mammogram in 1 year is recommended. BI-RADS Category 2: Benign. PATIENT LETTER SENT us Izaiah Hess MD IMG MAMMO PROCEDURES Final Re sult * Dexa Axial Skeleton Bone Density 1 or 2 Site (10/21/2020 12:46 PM CDT) Anatomical Region Laterality Modality Body N/A Other 10/21/2020 12:5 7 PM CDT Narrative 10/21/2020 12:57 PM CDT EXAM DESCRIPTION: DEXA AXIAL SKELETON BONE DENSITY 1 OR MORE SITES REASON FOR STUDY: 75 year old female with given history of postmenopausal state. 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 FINDINGS: AP LUMBAR SPINE L1-L4: Total BMD is 1.203 g/cm2 T-score is 1.4 LEFT HIP: Total BMD is 0.917 g/cm2 T-score is -0.2 Femoral neck BMD is 0.786 g/cm2 T-score is -0.6 IMPRESSION: Normal bone mineral density. REFERENCE: Bone mineral density: Normal (T-score above or = -1.0) Low bone mass (T-score between -1.0 and -2.5) replaces the previously used term osteopenia Osteoporosis (T-score = or below -2.5) Medical evaluation for secondary causes of low bone mineral density may be appropriate. FRAX is a World Health Organization validated fracture risk assessment tool that calculates a person's 10 year probability of a major osteoporosis related fracture and hip fracture. According to the National Osteoporosis Foundation guidelines, postmenopausal women and men age 50 or older with low bone mass and a 10 year probability of a major osteoporosis related fracture = or greater than 20% or a 10 year probability of a hip fracture = or greater than 3% should be considered for treatment. For further information, including treatment recommendations, please refer to the 2013 ISCD Official Positions (http://www.iscd.org) and the NOF's Clinician's Guide to Prevention and Treatment of Osteoporosis (http://www.nof.org/professionals/clinical-guidelines) THIS IS AN ELECTRONICALLY VERIFIED FINAL REPORT 10/21/2020 12:57 PM - Electronically signed by Andrew Echeverria M.D. MD: Report ID: [id number] Reading Location: [place] [address] Procedure Note Andrew Echeverria MD - 10/21/2020 EXAM DESCRIPTION: DEXA AXIAL SKELETON BONE DENSITY 1 OR MORE SITES REASON FOR STUDY: 75 year old female with given history ofpostmenopausal state. Supplier Quality Engineering Manager/Model: [employer] (S/N [id number]) CLINICAL INFORMATION: Current height: 63 inches Maximum height: 63.5 inches Weight: 144 pounds Risk factors: None reported COMPARISON: None available. FINDINGS: AP LUMBAR SPINE L1-L4: Total BMD is 1.203 g/cm2 T-score is 1.4 LEFT HIP: Total BMD is 0.917 g/cm2 T-score is -0.2 Femoral neck BMD is 0.786 g/cm2 T-score is -0.6 IMPRESSION: Normal bone mineral density. REFERENCE: Bone mineral density: Normal (T-score above or = -1.0) Low bone mass (T-score between -1.0 and -2.5) replaces thepreviously used term osteopenia Osteoporosis (T-score = or below -2.5) Medical evaluation for secondary causes of low bone mineral density may be appropriate. FRAX is a World Health Organization validated fracture risk assessmenttool that calculates a person's 10 year probability of a major osteoporosisrelated fracture and hip fracture. According to the National OsteoporosisFoundation guidelines, postmenopausal women and men age 50 or older with low bonemass and a 10 year probability of a major osteoporosis related fracture = or greater than 20% or a 10 year probability of a hip fracture = or greaterthan 3% should be considered for treatment. For further information, including treatment recommendations, please referto the 2013 ISCD Official Positions (http://www.iscd.org) and the NOF's Clinician's Guide to Prevention and Treatment of Osteoporosis (http://www.nof.org/professionals/clinical-guidelines) THIS IS AN ELECTRONICALLY VERIFIED FINAL REPORT 10/21/2020 12:57 PM - Electronically signed by Andrew Echeverria M.D. MD: Report ID: [id number] Reading Location: [place] [address] Izaiah Hess MD IMG DXA PROCEDURES Final Resu lt * Hepatitis C antibody (10/19/2020 9:58 AM CDT) [facility] Hep C Ab Nonreactive Nonreactive [facility] Comment: Interpretive Data Nonreactive: Antibodies to HCV not detected. Does NOT exclude the possibility of recent exposure to HCV. Equivocal: Equivocal for HCV antibodies. Supplemental molecular testing will be automatically performed to determine infection status in accordance with current CDC screening recommendations. Reactive: Positive for HCV antibodies. This may represent current or past HCV infection. Supplemental molecular testing will be automatically performed to determine current infection status in accordance with current CDC screening recommendations. Interpretive data was last revised on 2019. Blood specimen (specimen) 10/19/2020 9:58 AM CDT 10/19/2020 2:24 PM CDT Izaiah Hess MD LAB MICROBIOLOGY - GENERAL OR DERABLES Final Result [facility] [address] Department [place] [address] * COLONOSCOPY (10/31/2018) Pathologist [facility] Colonoscopy Abnormal Comment:Multiple polyps alon rimma, [facility]. Tristin Whiteside DO HEALTH MAINTENANCE Final Resul t from Last 3 Months or Most Recently Relevant to Health Maintenance Insurance T SENIOR SUPPLEMENT MEDICARE MEDICARE TNA MEDICARE [facility] SENIOR SUPPLEMENT MEDICARE AET SENIOR SUPPLEMENT [place] [id number] Care Teams Summer Babysitter Relationship Specialty Start Date End Date Federico Celaya MD [address] [address] PCP - General Family Medicine 01/02/23 Zayra Ramsey MD PhD [address] [place] [address] Referring Physician Neurology 02/07/21
--- OUTSIDE RECORDS SUMMARY | 2024-08-01 15:17 | XMS_ITS | Encounter Summary ---
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 Gender Identity Not on file Sexual Orientation Not on file documented as of this encounter Miscellaneous Notes * Telephone Encounter - Paris Gregory LPN - 07/31/2024 3:36 PM CDT SPoke with son regarding recent mychart message , pt will keep scheduled colonoscopy until further notice as the offered slot has been filled d/t time pt son would like to contacted for any further scheduling needs documented in this encounter Plan of Treatment Upcoming Encounters Date Type Department Care Team (Late st Contact Info) Description 09/07/2024 12:30 PM CDT Hospital Encounter [address] [address] Tristin Whiteside, DO [address] [facility] [address] [place] [address] 09/07/2024 12:30 PM CDT - 09/07/2024 1:20 PM CDT Surgery [address] [address] Tristin Whiteside DO [address] [facility] [address] [place] [address] COLONOSCOPY Scheduled Procedures Name Priority Associated Diagnoses [...] on filedocumented in this encounter Care Teams Zigzag Stitcher Relationship Specialty Start Date End Date Federico Celaya MD [address] [address] PCP - General Family Medicine 01/02/23 Zayra Ramsey MD PhD [address] [place] [address] Referring Physician Neurology 02/07/21 documented as of this encounter
--- OUTSIDE RECORDS SUMMARY | 2024-08-01 15:17 | XMS_ITS | Encounter Summary ---
Author Organization [facility] Healthcare Address [address] [place] [address] Care Team Providers Care Pipe Recovery Specialist Name Role Phone Izaiah Hess MD Primary Care Provider [phone] Zayra Ramsey MD PhD Unavailable [phone] Federico Celaya MD Primary Care Provider + Encounter Details Date Type Department Care Team (Late st Contact Info) Description 10/20/2020 Telephone [facility] [address] [place] [address] Milly Smith, RT Social History Tobacco Use Types Packs/Day Years Used Date Smoking Tobacco: Never Smokeless Tobacco: Never PHQ-2 Answer Date Recorded PHQ-2 Total Score (If total score is 3 or more points, staff should administer the PHQ-9) 0 10/19/2020 Comments No Sex and Gender Information Value Date Recorded Sex Assigned at Not on file 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 Gender Identity Not on file Sexual Orientation Not on file documented as of this encounter Plan of Treatment Upcoming Encounters Date Type Department Care Team (Late st Contact Info) Description 09/07/2024 12:30 PM CDT Hospital Encounter [facility] [address] [place] [address] Tristin Whiteside, DO [address] [place] [address] [address] 09/07/2024 12:30 PM CDT - 09/07/2024 1:20 PM CDT Surgery [facility] [address] [place] [address] Tristin Whiteside, DO [address] [facility] [address] [place] [address] COLONOSCOPY Scheduled Procedures Name Priority Associated Diagnoses [...] on filedocumented in this encounter Care Teams Pipe Recovery Specialist Relationship Specialty Start Date End Date Izaiah Hess MD [address] [place] [address] PCP - General 07/04/16 01/01/23 Federico Celaya MD [facility] [address] PCP - General Family Medicine 01/02/23 Zayra Ramsey MD PhD [address] [place] [address] Referring Physician Neurology 02/07/21 documented as of this encounter
--- OUTSIDE RECORDS SUMMARY | 2024-08-01 15:18 | XMS_ITS | Clinical Summary ---
Author Organization [facility] Address [address] [place] [address] Care Team Providers Care Repairer Welding Equipment Name Role Phone Zayra Ramsey MD PhD Unavailable [phone] Federico Celaya MD Primary Care Provider + Allergies Active Allergy Reactions Criticality Noted Date Comments Bacitracin Other (See comments) Low Reaction: gu skin, , Reaction: gu skin, Codeine Hives,Rash Medium Reaction: Hives, Skin Rash, Iron Rash Medium Reaction: Rash, Levofloxacin Swelling High Reaction: swelling, Levofloxacin In D5w Anaphylaxis,Swellin g High 03/28/2017 Neomycin Other (See comments) Low Reaction: gu skin, Polymyxin B Other (See comments) Low Reaction: gu skin, Dotbcdq-Mis-Ded Reductase Inhibitors Mental status changes Low 10/08/2018 [...] 60 tablet 11 5 07/30/19 26 Active alueqsoojpye-Tz-k sarah-minerals (ESSENTIAL DAILY) 18-0.4 mg tablet take [...] 02/13/2024 Assessment & Plan (02/13/2024 7:29 AM MAJOR ACCOUNT MANAGER): - encouraged magnesium use daily - check labs Encounter for annual wellness exam in Medicare p atient 01/30/2023 Assessment & Plan (02/13/2024 7:29 AM MAJOR ACCOUNT MANAGER): - Reviewed with the patient BMI, blood [...] 05/19/2022 Assessment & Plan (02/13/2024 7:29 AM MAJOR ACCOUNT MANAGER): - stable SI joint pain, likely due [...] scheduled. Assessment & Plan (05/19/2022 11:18 AM MAJOR ACCOUNT MANAGER): Chronic problem, reportedly present times about 2 [...] needed. Assessment & Plan (05/31/2022 4:01 PM MAJOR ACCOUNT MANAGER): She has some pain or discomfort in [...] 05/07/2021 Overview (05/30/2021): See scanned report from [place]. Assessment & Plan (01/30/2023 10:10 AM CDT): [...] on a sleep study ordered by the [facility]. She started on CPAP and [...] 02/07/2021 Assessment & Plan (05/18/2024 10:14 AM MAJOR ACCOUNT MANAGER): Overall, stable cognitive testing. Continue donepezil/Aricept 5 mg daily. We spoke of starting a low dose antidepressant such as escitalopram/Lexapro to help with her behavioral changes. Family would like to think about it and will reach out if they wish to start her on it. Follow-up in 6 months or sooner if need be. Assessment & Plan (02/13/2024 7:28 AM MAJOR ACCOUNT MANAGER): - stable - continue aricept Assessment & [...] She went to the memory clinic at [facility]. She was diagnosed with Alzheimer's dementia. It [...] Overview (10/11/2018): Carotid Doppler on 10/10/18 at [facility]: No sonographic evidence of significant stenosis [...] biopsied/removed by Dr. Whiteside at [facility] in 2018. A follow-up will be due in 2023. She denies problems with her bowels. Mixed hyperlipidemia 07/05/2016 Assessment & Plan (02/13/2024 7:28 AM MAJOR ACCOUNT MANAGER): - stable - continue diet control Assessment [...] Hypertension Assessment & Plan (02/13/2024 7:27 AM MAJOR ACCOUNT MANAGER): - well controlled - since very well [...] abnormalities. Assessment & Plan (02/17/2022 1:30 PM MAJOR ACCOUNT MANAGER): She has had intermittent trouble swallowing for [...] resolves. Assessment & Plan (02/17/2022 1:29 PM MAJOR ACCOUNT MANAGER): She developed some laryngitis this morning. Apparently it has been a recurring problem ever since she was a little girl . It lasts anywhere from a few hours to a week or so. 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 We will monitor clinically. Resolved Problems Problem [...] follow-up with the memory care specialists at [facility] on Saturday of this week. We will see what they have to say. Assessment & Plan (11/06/2020 5:22 PM CDT): We performed a basic evaluation including B12, TSH, CMP, and CT head, all of which are unremarkable except for mild small-vessel disease on the head CT. 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 Other causes are possible. We will refer her to the [facility] memory clinic for further evaluation and recommendations. [...] refer her to the Memory Clinic at [facility]. Overweight 09/29/2018 08/01/2022 Overview (08/01/2022): Obesity -> [...] Overview (10/07/2018): See [facility] report. Follow-up at [facility] negative. Assessment & Plan (10/20/2017 1:05 PM CDT): About a year ago, she had a mammogram, and a six month follow-up was recommended but she said she had too much going on at that time with her family so she never went. She does agree to a follow-up mammogram, so we ordered this. We will arrange for appropriate referral if needed. Encounters Date Type Department Care Team Description 07/31/2024 Telephone [facility] at [address] [place] [address] Paris Gregory LPN 07/30/2024 Telephone [facility] at [address] [place] [address] Paris Gregory LPN 07/29/2024 Telephone [facility] at [address] [place] [address] Julia Resendez MA 07/28/2024 Telephone [facility] at [address] [place] [address] Ca Emery MA 07/21/2024 2:30 PM CDT Office Visit [facility] at [address] [place] [address] Tristin Whiteside DO Atypical chest pain (Primary Dx); Belching; Gastroesophageal reflux disease, unspecified whether esophagitis present; Adenomatous polyp of colon, unspecified part of colon; Family history of colon cancer; Chronic idiopathic constipation 07/21/2024 Telephone [facility] at [address] [place] [address] Paris Gregory LPN 07/21/2024 Telephone [facility] [address] [place] [phone] Federico Celaya MD Medical Question/Miscellaneo us 06/26/2024 Telephone [facility] [address] [place] [phone] Federico Celaya MD Referral Request 05/18/2024 9:30 AM MAJOR ACCOUNT MANAGER Office Visit [facility] [address] [facility] [address] [place] [address] Anthony Blakely NP Alzheimer's disease (HCC) (Primary Dx) from Last 3 Months Immunizations Immunization Administration Dates Next Due Influenza, Unspecified 01/02/2023(Deferr ed: Patient Refused),12/30/2021(Deferred: Patient Refused) Pfizer SARS-CoV-2 Monovalent Vaccination (12+ Yrs) PURPLE 11/16/2020,10/25/2020 Pneumococcal Conjugate Pcv20 01/02/2023(Deferred : Patient Refused) Surgical History Surgery Date Site/Laterality Comments CARDIAC ELECTROPHYSIOLOGY ST UDY AND ABLATION Cardiac ablation, details lacking. COLONOSCOPY 04/12/2017 Sigmoid colon tubulovillous polyp, 2.5 cm, otherwise normal, [facility]. Dr. Whiteside. TOTAL ABDOMINAL HYSTERECTOMY W/ BILATERAL SALPINGOOPHORECTOMY Fibroid cyst: Hysterectomy, total abdominal, BSO, details lacking BREAST SURGERY Right Right breast tumor removed, details lacking. SKIN SURGERY 07/31/2017 Removal of seborrheic keratosis, [facility]. SKIN SURGERY 10/13/2015 Removal of actinic keratosis, [facility]. MAMMOGRAPHY 10/08/2017 Normal, [facility] COLONOSCOPY 10/31/2018 Transverse colon tubular adenoma, and 3 sigmoid hyperplastic polyps, biopsied/removed, Dr. Whiteside, [facility]. MAMMOGRAPHY 10/19/2020 Bilateral Negative, [facility] DEXA SCAN 10/21/2020 Normal bone mineral density, [facility]. MAMMOGRAPHY 08/02/2022 Bilateral Negative, [facility]. 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 Gender Identity Not on file Sexual Orientation Not on file Obstetrics History Last Filed Vital Signs Vital Sign Reading Time Taken Comments Blood Pressure 153/77 07/21/2024 2:33 PM CDT Pulse 79 07/21/2024 2:33 PM CDT Temperature 36.4 C (97.6 F) 05/18/2024 8:58 AM MAJOR ACCOUNT MANAGER Respiratory Rate 16 02/13/2024 6:58 AM MAJOR ACCOUNT MANAGER Oxygen Saturation 96% 07/21/2024 2:33 PM CDT Inhaled Oxygen Concentration - - Weight 55.5 kg (122 lb 6.4 oz) 07/21/2024 2:33 P M CDT Height 160 cm (5' 3 ) 07/21/2024 2:33 PM CDT Body Mass Index 21.68 07/21/2024 2:33 PM CDT Plan of Treatment Upcoming Encounters Date Type Department Care Team (Late st Contact Info) Description 09/07/2024 12:30 PM CDT Hospital Encounter [address] [address] Tristin Whiteside DO [address] [facility] [place] [address] 09/07/2024 12:30 PM CDT - 09/07/2024 1:20 PM CDT Surgery [address] [address] Tristin Whiteside DO [address] [facility] [place] [address] COLONOSCOPY Scheduled Procedures Name Priority Associated Diagnoses Date/Ti me COLONOSCOPY Gastroesophageal reflux disease, unspecified whether esophagitis present Belching Chest pain, unspecified type Hx of colonic polyps 09/07/2024 12:30 PM CDT ESOPHAGOGASTRODUODENOSCOPY Gastroesophageal reflux disease, unspecified whether esophagitis present Belching Chest pain, unspecified type Hx of colonic polyps 09/07/2024 12:30 PM CDT Health Maintenance Due Date Last Done Comments DTaP/Tdap/Td Vaccine (1 - Tdap) 1956 Hepatitis B Screening 1963 Pneumococcal vaccine 65+ (1 of 1 - PCV) 1996 Zoster Vaccine (1 of 2) 1996 Osteoporosis Screening-Bone Density Scan 10/21/2022 10/21/2020, 10/04/2017, 10/04/2017 Covid-19 Vaccine (3 2023-2 5 season) 2023 11/16/2020, 10/25/2020 Influenza Vaccine (Season Ended) 2024 Depression Screening 02/12/2025 02/13/2024, 01/30/2023, 02/02/2022, Additional history exists Fall Risk Assessment 02/12/2025 02/13/2024, 01/30/2023, 02/02/2022, Additional history exists Well Visit 65+ 02/12/2025 02/13/2024, 04/2022, 02/02/2022, Additional history exists Colon Cancer Screening-CT Colonography Discontinued 10/31/2018 Colon Cancer Screening-Colonoscopy Discontinued 10/31/2018 Colon Cancer Screening-DNA Stool Discontinued 11/01/19 19 Colon Cancer Screening-FIT Discontinued 10/31/2018 Colon Cancer Screening-FOBT Discontinued 10/31/2018 Colon Cancer Screening-Sigmoidoscopy Discontinued 10/31/2018 Colorectal Cancer Screening Discontinued Hepatitis C Screening Completed 10/19/2020 Breast Cancer Screening-Mammogram Discontinued 08/02/2022, 10/19/2020, 10/08/2017, Additional history exists Procedures Procedure Name Priority Date/Time Associated Diagnosis [...] female with given history of postmenopausal state. 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/Model: [employer] (S/N [id number]) CLINICAL INFORMATION: Current height: 63 inches Maximum [...] 12:57 PM - Electronically signed by Andrew Ehceverria M.D., MD: Report ID: [id number] Reading Location: [place] [address] Izaiah Hess MD [facility]XA PROCEDURES Final Resu lt * Hepatitis C antibody (10/19/2020 9:58 AM CDT) Pathologist [facility] Hep C Ab Nonreactive Nonreactive [facility] Comment: Interpretive Data Nonreactive: Antibodies to HCV [...] 9:58 AM CDT 10/19/2020 2:24 PM CDT us Izaiah Hess MD LAB MICROBIOLOGY - GENERAL OR DERABLES Final Result Performing Organization Address City[place] Phone Number [facility] [address] Department [place] [address] * COLONOSCOPY (10/31/2018) Colonoscopy Abnormal Comment:Multiple polyps alon rimma, [facility]. [place] Tristin Whiteside DO HEALTH MAINTENANCE Final Resul t from Last 3 Months or Most Recently Relevant to Health Maintenance Insurance AET SENIOR [facility] MEDICARE MEDICARE AETNA 2011 [place] [address] MEDICARE T SENIOR SUPPLEMENT MEDICARE AETNA SENIOR SUPPLEMENT Care Teams Repairer Welding Equipment Relationship Specialty Start Date End Date Federico Celaya MD [address] [place] [address] PCP - General Family Medicine 01/02/23 Zayra Rasmey MD PhD [address] [place] [address] Referring Physician Neurology 02/07/21
--- OUTSIDE RECORDS SUMMARY | 2024-08-01 15:18 | XMS_ITS | Encounter Summary ---
Author Organization [facility] Address [address] [place] [address] Phone Care Team Providers Care Tie In Hand Name Role Phone Izaiah Hess MD Primary Care Provider [phone] Zayra Ramsey MD PhD Unavailable [phone] Federico Celaya MD Primary Care Provider + Encounter Details Date Type Department Care Team (Late st Contact Info) Description 05/07/2021 Orders Only [facility] [address] [place] [address] Izaiah Hess MD [address] [address] Social History Tobacco Use Types Packs/Day Years Used Date Smoking Tobacco: Never Smokeless Tobacco: Never PHQ-2 Answer Date Recorded PHQ-2 Total Score (If total score is 3 or more points, staff should administer the PHQ-9) 0 10/19/2020 Comments No Sex and Gender Information Value Date Recorded Sex Assigned at Not on file 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 Gender Identity Not on file Sexual Orientation Not on file documented as of this encounter Plan of Treatment Upcoming Encounters Date Type Department Care Team (Late st Contact Info) Description 09/07/2024 12:30 PM CDT Hospital Encounter [facility] [address] [address] Tristin Whiteside, DO 4 [facility] [address] [place] [address] 09/07/2024 12:30 PM CDT - 09/07/2024 1:20 PM CDT Surgery [address] [address] Tristin Whiteside, DO 4 [facility] [address] [place] [address] COLONOSCOPY Scheduled Procedures Name Priority Associated Diagnoses Date/Ti me COLONOSCOPY Gastroesophageal reflux disease, unspecified whether esophagitis present Belching Chest pain, unspecified type Hx of colonic polyps 09/07/2024 12:30 PM CDT ESOPHAGOGASTRODUODENOSCOPY Gastroesophageal reflux disease, unspecified whether esophagitis present Belching Chest pain, unspecified type Hx of colonic polyps 09/07/2024 12:30 PM CDT documented as of this encounter Procedures Procedure Name Priority Date/Time Associated Diagnosis Comments SLEEP LAB/STUDY - RESULT 05/07/2021 documented in this encounter Results * SLEEP LAB/STUDY - RESULT (05/07/2021) Izaiah Hess MD Final Result documented in this encounter Visit Diagnoses Not on filedocumented in this encounter Care Teams Tie In Hand Relationship Specialty Start Date End Date Izaiah Hess MD [address] [place] [address] PCP - General 07/04/16 01/01/23 Federico Celaya MD [address] [place] [address] PCP - General Family Medicine 01/02/23 Zayra Ramsey MD PhD [address] [facility] [address] [place] [address] Referring Physician Neurology 02/07/21 documented as of this encounter
--- OUTSIDE RECORDS SUMMARY | 2024-08-01 15:18 | XMS_ITS | Clinical Summary ---
Author Organization [facility] Address [address] [facility], [address] [address] Phone Care Team Providers Care Employment Training Specialist Name Role Phone Izaiah Hess MD Primary Care Provider [phone] Allergies Active Allergy Reactions Criticality Noted Date Comments Codeine Nausea 03/28/2017 Ferrous Fumarate Nausea 04/12/2017 Levofloxacin In D5w Anaphylaxis,Swelling High 2016 Neomycin-Bacitracin Zn-Polymyx Other (see Comments) Medium 03/28/2017 Causes burning. Medications lisinopril (PRINIVIL, ZESTRIL) 10 MG Tablet Take 10 mg by mouth daily. Active other 1 Tab by Other route daily. Liver Antioxidant Active other 1 Tab by Other route Every other day. Supplement for cholesterol (cholestacare) with fibermucil Active Multiple Vitamins-Minera ls (HAIR SKIN NAILS PO) Take by mouth. Activ e Family History Medical History Relation Name Comments Diabetes Father Heart Disease Father Dementia Mother Cancer Sister Colon Cancer Sister Relation Name Status Comments Father Mother Sister Social History Tobacco Use Types Packs/Day Years Used Date Smoking Tobacco: Never Smokeless Tobacco: Never Alcohol Use Standard Drinks/Week Comments No 0 (1 standard drink = 0.6 oz pur e alcohol) Comments Unknown Sex and Gender Information Value Date Recorded Sex Assigned at Not on file Legal Sex Female 7:42 PM CDT Gender Identity Not on file Sexual Orientation Not on file Last Filed Vital Signs Vital Sign Reading Time Taken Comments Blood Pressure 109/56 10/31/2018 9:20 AM CDT Pulse 71 10/31/2018 9:20 AM CDT Temperature 36 C (96.8 F) 10/31/2018 9:20 AM CDT Respiratory Rate 19 10/31/2018 9:20 AM CDT Oxygen Saturation 96% 10/31/2018 9:20 AM CDT Inhaled Oxygen Concentration - - Weight 72.6 kg (160 lb) 10/13/2018 11:00 AM CDT Height 160 cm (5' 3 ) 10/13/2018 11:00 AM CDT Body Mass Index 28.34 10/13/2018 11:00 AM CDT Plan of Treatment Health Maintenance Due Date Last Done Comments Hepatitis C Virus (HCV) Screening 1945 TdaP Immunization 1945 Pneumococcal Immunization (5 0+ years) (1 of 1 - PCV) 1996 Zoster Immunization (1 of 2) 1996 Respiratory Syncytial Virus (RSV) Immunization (Adult) (1 - 1-dose 75+ series) 2021 Influenza Immunization (#1) 2023 SARS-COV-2 Immunization ( - 2023- season) 2023 Colonoscopy High Risk Discontinued 10/31/2018 , 04/12/2017 Colonoscopy Discontinued 10/31/2018, 04/12/2017 Colorectal Cancer Screening Discontinued Cologuard Discontinued Hepatitis B Immunization Aged Out No longer eligible based on patient's age to complete this topic Immunochemical Fecal Occult Blood Discontinued Meningococcal Immunization (ACWY) Aged Out No longer eligible based on patient's age to complete this topic Rotavirus Immunization Aged Out No lo nger eligible based on patient's age to complete this topic Insurance MEDICARE AETNA SENIOR SUPPLEMENTAL Care Teams Employment Training Specialist Relationship Specialty Start Date End Date Izaiah Hess MD [employer], [address] [place] [address] PCP - General Infectious Disease 04/11/17
--- OUTSIDE RECORDS SUMMARY | 2024-08-01 15:18 | XMS_ITS | Clinical Summary ---
Author Organization [facility] Address [address] [place] [address] Care Team Providers Care Expedition Supervisor Name Role Phone Unavailable Primary Care Provider Unavailabl e Social History Tobacco Use Types Packs/Day Years Used Date Smoking Tobacco: Never Assessed Comments Unknown Sex and Gender Information Value Date Recorded Sex Assigned at Not on file Legal Sex Female 4:39 PM CDT Gender Identity Not on file Sexual Orientation Not on file Plan of Treatment Health Maintenance Due Date Last Done Comments Hepatitis C 1963 DTaP, Tdap and Td Vaccines ( 1 - Tdap) 1965 Pneumococcal Vaccine: 50+ Ye ars (1 of 1 - PCV) 1996 Zoster Vaccines (1 of 2) 1996 Dexa Scan (General) 2011 RSV Immunization or 60+ Years (1 - 1-dose 75+ series) 2021 COVID-19 Vaccine (2023-2 5 season) 2023 Meningococcal B Vaccine Aged Out No l onger eligible based on patient's age to complete this topic Meningococcal Vaccine Aged Out No mac ijeoma eligible based on patient's age to complete this topic RSV Immunizations Under 20 Months Aged Out No longer eligible based on patient's age to complete this topic
== END 2024-07-31 23:26 | disposition home or self-care (01) ==
PROVIDERS: Emergency Provider Emergency Medicine; PCP Urology
DX: K22.4 Dyskinesia of esophagus (principal); R10.13 Epigastric pain; R91.1 Solitary pulmonary nodule; I31.39 Other pericardial effusion (noninflammatory)
CPT/HCPCS: 36415; 71045; 74177; 80053; 81001; 83690; 83735; 84484; 85025; 87086; 93005; 99284; Q9967

== ENCOUNTER 2024-08-03 09:26 | Outpatient (CLI) | payer MEDICARE, SELFPAY ==
--- NOTE | ~2024-08-03 | CT_ITS ---
CT Scan of the Chest without Contrast: Clinical Indication: Atypical chest pain Technique: Contiguous sections were acquired throughout the chest without intravenous contrast. Dose reduction technique was used on this scan by utilizing automated exposure control and iterative recon struction technique. The dose-length product (DLP) was 136.81 mGy-cm. Findings: There is no evidence of any significant mediastinal, hilar or axillary lymphadenopathy. Extensive cor onary artery calcification is present. Small to moderate pericardial effusion present.. There is no evidence of pleural effusion. There is linear scarring left lung base. Calcified left basilar granuloma present. Calcified lingular granuloma present. Images through the upper abdomen reveal no abnormalities. Impression: Tvbro-ev-gfrnchuu pericardial effusion. Extensive coronary artery calcification. No significant pulmonary abnormality seen. Reviewed, dictated and finalized at [facility]. Impression: Qrucc-it-zmpwhyoi pericardial effusion. Extensive coronary artery calcification. No significant pulmonary abnormality seen.
== END 2024-08-03 09:27 | disposition home or self-care (01) ==
LOC: MICIMG 09:28
PROVIDERS: PCP Family Medicine; Visit Provider Internal Medicine Gastroenterology
DX: R07.89 Other chest pain (principal); R14.2 Eructation; K21.9 Gastro-esophageal reflux disease without esophagitis; I25.10 Atherosclerotic heart disease of native coronary artery without angina pectoris; I31.39 Other pericardial effusion (noninflammatory)
CPT/HCPCS: 71250

== ENCOUNTER 2024-08-25 00:06 | Day surgery (SDC) | payer MEDICARE, SELFPAY ==
[2024-08-19 14:22] VITALS: BMI 22.1
--- NOTE | 2024-08-20 13:56 | PC.NURSE ---
Chart sent to Valeria Hauser RN and reviewed by Anesthesia, Dr. Enriquez. Dr. Enriquez wants pt to be seen and cleared by cardiology prior to procedure due to symptoms and Pericardial Effusion seen on CT Scan. Referral to cardiology in the emergency room on 07/31/[address] Shaikh who does not see patients in the office, I spoke to that office and they will need a new patient referral if they are to see her. I called Dr. Celaya office and spoke with Stephanie, she will send Dr. Celaya a message that patient will need a cardiology consult dario to get her cleared prior to procedure. They will call patient/family and also notify me when this set up.
--- OUTSIDE RECORDS SUMMARY | 2024-08-25 00:10 | XMS_ITS | Encounter Summary ---
Author Organization [facility] Address [address] [place] [address] Care Team Providers Care Wholesale Account Manager Name Role Phone Izaiah Hess MD Primary Care Provider [phone] Zayra Ramsey MD PhD Unavailable [phone] Federico Celaya MD Primary Care Provider + Encounter Details Date Type Department Care Team (Late st Contact Info) Description 10/20/2020 Telephone [facility] [address] [place] [address] Milly Smith, RT Social History Tobacco Use Types Packs/Day Years Used Date Smoking Tobacco: Never Smokeless Tobacco: Never PHQ-2 Answer Date Recorded PHQ-2 Total Score (If total score is 3 or more points, staff should administer the PHQ-9) 0 10/19/2020 Comments No Sex and Gender Information Value Date Recorded Sex Assigned at Not on file 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
--- OUTSIDE RECORDS SUMMARY | 2024-08-25 00:10 | XMS_ITS | Encounter Summary ---
Author Organization [facility] Healthcare Address [address] [place] [address] Care Team Providers Care Supervisor Frame Sample And Pattern Name Role Phone Zayra Ramsey MD PhD Unavailable [phone] Federico Celaya MD Primary Care Provider + Encounter Details Date Type Department Care Team (Late st Contact Info) Description 09/26/2023 Orders Only [facility] Health Information Management [address] [place] [id number] Scanning, Provider Social History Tobacco Use Types Packs/Day Years Used Date Smoking Tobacco: Never Smokeless Tobacco: Never PHQ-2 Answer Date Recorded PHQ-2 Total Score (If total score is 3 or more points, staff should administer the PHQ-9) 1 01/30/2023 Comments No Sex and Gender Information Value Date Recorded Sex Assigned at Not on file 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 Gender Identity Not on file Sexual Orientation Not on file documented as of this encounter Plan of Treatment Not on file documented as of this encounter Procedures Procedure Name Priority Date/Time Associated Diagnosis Comments SCAN - RADIOLOGY/IMAGING 09/26/2023 documented in this encounter Results * SCAN - RADIOLOGY/IMAGING (09/26/2023) Anatomical Region Laterality Modality Other us Provider Scanning Final Result documented in this encounter Visit Diagnoses Not on filedocumented in this encounter Care Teams Supervisor Frame Sample And Pattern Relationship Specialty Start Date End Date Federico Celaya MD [address] [address] PCP - General Family Medicine 01/02/23 Zayra Ramsey MD PhD [address] [place] [address] Referring Physician Neurology 02/07/21 documented as of this encounter
--- OUTSIDE RECORDS SUMMARY | 2024-08-25 00:11 | XMS_ITS | Clinical Summary ---
Author Organization [facility] Address [address] [place] [address] Care Team Providers Care Oil Spot Washer Name Role Phone Zayra Ramsey MD PhD Unavailable [phone] Federico Celaya MD Primary Care Provider + [...] Other (See comments) Low Reaction: gu skin, Bqgapay-Rmo-Kps Reductase Inhibitors Mental status changes Low 10/08/2018 Intolerant of multiple cholesterol medications. Sulfa (Sulfonamide Antibiotics) Nausea only,Vomiting Low Reaction: Nausea, Vomiting, Medications ibuprofen (ADVIL,MOTRIN) 200 mg tab/cap Take 1 tablet/capsul e (200 mg total) by mouth every 6 [...] 2 (two) times a day 60 tablet 5 07/30/19 26 Active hyoscyamine (OSCIMIN) 0.125 mgIndications:Uri nary Incontinence Take 1 tablet (0.125 mg total) by mouth every 6 (six) hours as needed for cramping 180 tablet 5 Active Active Problems Problem Noted Date Diagnosed Date Gastroesophageal reflux disease 07/21/2024 Belching 07/21/2024 Chest pain 07/21/2024 Hx of colonic polyps 07/21/2024 Nocturnal muscle cramps 02/13/2024 Assessment & Plan (02/13/2024 7:29 AM STRAIGHT LINE EDGER): - encouraged magnesium use daily - check labs Encounter for annual wellness exam in Medicare p atient 01/30/2023 Assessment & Plan (02/13/2024 7:29 AM STRAIGHT LINE EDGER): - Reviewed with the patient BMI, blood [...] 05/19/2022 Assessment & Plan (02/13/2024 7:29 AM STRAIGHT LINE EDGER): - stable SI joint pain, likely due [...] scheduled. Assessment & Plan (05/19/2022 11:18 AM STRAIGHT LINE EDGER): Chronic problem, reportedly present times about 2 [...] needed. Assessment & Plan (05/31/2022 4:01 PM STRAIGHT LINE EDGER): She has some pain or discomfort in [...] 05/07/2021 Overview (05/30/2021): See scanned report from [place]. Assessment & Plan (01/30/2023 10:10 AM CDT): [...] on a sleep study ordered by the [facility]. She started on [...] 02/07/2021 Assessment & Plan (05/18/2024 10:14 AM STRAIGHT LINE EDGER): Overall, stable cognitive testing. Continue donepezil/Aricept 5 mg daily. We spoke of starting a low dose antidepressant such as escitalopram/Lexapro to help with her behavioral changes. Family would like to think about it and will reach out if they wish to start her on it. Follow-up in 6 months or sooner if need be. Assessment & Plan (02/13/2024 7:28 AM STRAIGHT LINE EDGER): - stable - continue aricept Assessment & [...] She went to the memory clinic at [facility]. She was diagnosed with Alzheimer's [...] Overview (10/11/2018): Carotid Doppler on 10/10/18 at [facility]: No sonographic evidence of significant stenosis [...] 07/05/2016 Assessment & Plan (02/13/2024 7:28 AM STRAIGHT LINE EDGER): - stable - continue diet control Assessment [...] Hypertension Assessment & Plan (02/13/2024 7:27 AM STRAIGHT LINE EDGER): - well controlled - since very well [...] abnormalities. Assessment & Plan (02/17/2022 1:30 PM STRAIGHT LINE EDGER): She has had intermittent trouble swallowing for [...] resolves. Assessment & Plan (02/17/2022 1:29 PM STRAIGHT LINE EDGER): She developed some laryngitis this morning. Apparently it has been a recurring problem ever since she was a little girl . It lasts anywhere from a few hours to a week or so. 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 We will monitor clinically. Resolved Problems Problem [...] follow-up with the memory care specialists at [facility] on Saturday of this week. [...] possible. We will refer her to the [facility] memory clinic for further evaluation [...] refer her to the Memory Clinic at [facility]. Overweight 09/29/2018 08/01/2022 Overview (08/01/2022): [...] Overview (10/07/2018): See [facility] report. Follow-up at [facility] negative. Assessment & Plan (10/20/2017 1:05 [...] Encounters Date Type Department Care Team Description 08/20/2024 Telephone [facility] Medical Group Primary Care [address] [place] [address] [address] [place] [phone] Federico Celaya MD Recommendation Request 08/20/2024 Telephone [facility] Medical Group Gastroenterology at [address] [place] [address] [place] 08/17/2024 Telephone [facility] Group Gastroenterology at [address] [place] [address] Paris Gregory LPN 08/12/2024 Telephone [facility] Primary Care [address] [place] [address] [address] [place] [address] Federico Celaya MD 08/10/2024 Orders Only [facility] Gastroenterology at [address] [place] [address] Tristin Whiteside, Atypical chest pain (Primary Dx); Gastroesophageal reflux disease, unspecified whether esophagitis present 08/07/2024 Telephone [facility] Gastroenterology at [address] [place] [address] [place], [place] 08/05/2024 9:00 AM CDT Office Visit [facility] Medical [facility] Primary Care [address] [place] [address] [address] [place] [address] Federico Celaya MD Esophageal spasm (Primary Dx); Essential hypertension; Alzheimer's disease (HCC); Gastroesophageal reflux disease without esophagitis 08/03/2024 Orders Only [facility] Health Information Management [address] [place] [address] Scanning, Provider 08/03/2024 Orders Only [facility] Primary Care at [address] [place] [address] Federico Celaya MD 07/31/2024 Telephone [facility] Medical Group Gastroenterology at [address] [place] [address] Paris Gregory LPN 07/30/2024 Telephone [facility] Group Gastroenterology at [address] [place] [address] Paris Gregory LPN 07/29/2024 Telephone [facility] Group Gastroenterology at [address] [place] [address] Julia Resendez [place] 07/28/2024 Telephone [facility] Gastroenterology at [address] [place] [address] Ca Emery [place] 07/21/2024 2:30 PM CDT Office Visit [facility] Gastroenterology at [address] [place] [address] Tristin Whiteside, Atypical chest pain (Primary Dx); Belching; Gastroesophageal reflux disease, unspecified whether esophagitis present; Adenomatous polyp of colon, unspecified part of colon; Family history of colon cancer; Chronic idiopathic constipation 07/21/2024 Telephone [facility] Medical Group Gastroenterology at [address] [place] [address] Paris Gregory LPN 07/21/2024 Telephone [facility] Primary Care [address] [place] [address] Federico Celaya MD Medical Question/Miscellaneou s 06/26/2024 Telephone [facility] Primary Care [address] [place] [phone] Federico Celaya MD Referral Request from Last 3 Months Immunizations Immunization Administration Dates Next Due Influenza, Unspecified 12/31/2023(Deferr ed: Patient Refused),01/02/2023(Deferred: Patient Refused),12/30/2021(Deferred: Patient Refused) Pfizer SARS-CoV-2 Monovalent [...] of actinic keratosis, [facility]. MAMMOGRAPHY 10/08/2017 Normal, [facility] COLONOSCOPY 10/31/2018 Transverse colon tubular adenoma, [...] Relation Name Comments Diabetes Father Diabetes mellit ; Heart attack Father COD Hypertension Father Hypertension; [...] points, staff should administer the PHQ-9) 0 08/05/2024 Comments No Sex and Gender Information Value Date Recorded Sex Assigned at Not on file Legal Sex Female 2:58 PM STRAIGHT LINE EDGER Gender Identity Not on file Sexual Orientation Not on file Obstetrics History Last Filed Vital Signs Vital Sign Reading Time Taken Comments Blood Pressure 132/72 08/05/2024 10:11 AM CDT Pulse 65 08/05/2024 8:51 AM CDT Temperature 36.3 C (97.4 F) 08/05/2024 8:51 AM CDT Respiratory Rate 16 08/05/2024 8:51 AM CDT Oxygen Saturation 98% 08/05/2024 8:51 AM CDT Inhaled Oxygen Concentration - - Weight 55.8 kg (123 lb) 08/05/2024 8:51 AM CDT Height 160 cm (5' 3 ) 08/05/2024 8:51 AM CDT Body Mass Index 21.79 08/05/2024 8:51 AM CDT Plan of Treatment Health Maintenance Due Date Last Done Comments DTaP/Tdap/Td Vaccine (1 - Tdap) 1956 Hepatitis B Screening 1964 Pneumococcal vaccine 65+ (1 of 1 - PCV) 1996 Zoster Vaccine (1 of 2) 1996 Osteoporosis Screening-Bone Density Scan 10/21/2022 10/21/2020, 10/04/2017, 10/04/2017 Covid-19 Vaccine (3 - 2023-2 5 season) 2023 11/16/2020, 10/25/2020 Influenza Vaccine (Season Ended) 2024 Fall Risk Assessment 02/12/2025 02/13/2024, 01/30/2023, 02/02/2022, Additional history exists Well Visit 65+ 02/12/2025 02/13/2024, 04/2022, 02/02/2022, Additional history exists Depression Screening 08/05/2025 08/05/2024, 02/13/2024, 01/30/2023, Additional history exists Colon Cancer Screening-CT Colonography [...] Date/Time Associated Diagnosis Comments SCAN - RADIOLOGY/IMAGING 08/03/2024 SCREENING MAMMOGRAM BILATERAL W SHABBIR Schedule Routine, [...] Recently Relevant to Health Maintenance Results * SCAN - RADIOLOGY/IMAGING (08/03/2024) Anatomical Region Laterality Modality Other us Provider Scanning Final Result * Screening Mammogram Bilateral W Shabbir (08/02/2022 [...] BI-RADS Category 2: Benign. PATIENT LETTER SENT Izaiah Hess MD IMG MAMMO PROCEDURES Final [...] female with given history of postmenopausal state. Hand Bender/Model: [employer] SL (S/N [id number]) CLINICAL INFORMATION: Current height: 63 inches Maximum [...] by Andrew Echeverria M.D., MD: Report ID: [id number] Reading Location: [place] [address] Procedure Note Andrew Echeverria MD - 10/21/2020 EXAM DESCRIPTION: DEXA AXIAL SKELETON BONE DENSITY 1 OR MORE SITES REASON FOR STUDY: 75 year old female with given history ofpostmenopausal state. Hand Bender/Model: [employer] SL (S/N [id number]) CLINICAL INFORMATION: Current height: 63 inches Maximum [...] by Andrew Echeverria M.D., MD: Report ID: [id number] Reading Location: [id number] Izaiah Hess MD IMG DXA PROCEDURES Final Resu lt * Hepatitis C antibody (10/19/2020 9:58 AM CDT) Pathologist [facility] Hep C Ab Nonreactive Nonreactive VAN FLOR [...] - GENERAL OR DERABLES Final Result VAN [address] [address] Department of Laboratories [place] [id number] * COLONOSCOPY (10/31/2018) Pathologist [facility] Colonoscopy Abnormal Comment:Multiple polyps alon rimma, [facility]. Tristin Whiteside DO HEALTH MAINTENANCE Final Resul t from Last 3 Months or Most Recently Relevant to Health Maintenance Insurance AETNA SENIOR SUPPLEMENT MEDICARE MEDICARE [facility] MEDICARE AETNA SENIOR SUPPLEMENT MEDICARE [facility] Address: [address] [address] [place] [address] AETNA SENIOR SUPPLEMENT Care Teams Oil Spot Washer Relationship Specialty Start Date End Date Federico Celaya MD [facility] [address] PCP - General Family Medicine 01/02/23 Zayra Ramsey MD PhD [address] [place] [address] Referring Physician Neurology 02/07/21
--- OUTSIDE RECORDS SUMMARY | 2024-08-25 00:11 | XMS_ITS | Referral Summary ---
Author Organization [facility] Address [address] [place] [address] Care Team Providers Care Secondary School Teacher Name Role Phone BraulioZayra MD PhD Unavailable [phone] Federico Celaya MD Primary Care Provider + Encounters Date Type Department Care Team Description 08/20/2024 Telephone [facility] Medical Group Primary Care [address] [place] [address] [address] [place] [address] Federico Celaya MD Recommendation Request 08/20/2024 Telephone [facility] Medical Group Gastroenterology at [address] [place] [phone] Ca Emery [place] 08/17/2024 Telephone [facility] Medical Group Gastroenterology at [address] [place] [address] Paris Gregory LPN 08/12/2024 Telephone [facility] Medical Group Primary Care [address] [place] [address] [address] [place] [address] Federico Celaya MD 08/10/2024 Orders Only [facility] Medical Group Gastroenterology at [address] [place] [phone] Tristin Whiteside, Atypical chest pain (Primary Dx); Gastroesophageal reflux disease, unspecified whether esophagitis present 08/07/2024 Telephone [facility] Medical Group Gastroenterology at [address] [place] [address] Alexander Chahal MA 08/05/2024 9:00 AM CDT Office Visit [facility] Medical Group Primary Care [address] [place] [address] [address] [place] [phone] Federico Celaya MD Esophageal spasm (Primary Dx); Essential hypertension; Alzheimer's disease (HCC); Gastroesophageal reflux disease without esophagitis 08/03/2024 Orders Only [facility] Health Information Management [address] [place] [address] Scanning, Provider 08/03/2024 Orders Only [facility] Medical [facility] Primary Care at [address] [place] [phone] Federico Celaya MD 07/31/2024 Telephone [facility] Medical Group Gastroenterology at [address] [place] [address] Paris Gregory LPN 07/30/2024 Telephone [facility] Medical Group Gastroenterology at [address] [place] [address] Paris Gregory LPN 07/29/2024 Telephone [facility] Medical Group Gastroenterology at [address] [place] [address] Julia Resendez MA 07/28/2024 Telephone [facility] Medical Group Gastroenterology at [address] [place] [address] Ca Emery [place] 07/21/2024 Telephone [facility] Medical Group Gastroenterology at [address] [place] [address] Paris Gregory LPN 07/21/2024 Telephone [facility] Medical Group Primary Care [address] [place] [address] [address] [place] [phone] Federico Celaya MD Medical Question/Miscellaneou s 07/21/2024 2:30 PM CDT Office Visit [facility] Medical Group Gastroenterology at [address] [place] [address] Tristin Whiteside, Atypical chest pain (Primary Dx); Belching; Gastroesophageal reflux disease, unspecified whether esophagitis present; Adenomatous polyp of colon, unspecified part of colon; Family history of colon cancer; Chronic idiopathic constipation 06/26/2024 Telephone [facility] Primary Care [address] [facility] [address] [place] [address] Federico Celaya MD Referral Request from Last 3 Months Allergies Active Allergy [...] Other (See comments) Low Reaction: gu skin, Vzuklea-Ybr-Egt Reductase Inhibitors Mental status changes Low 10/08/2018 [...] 60 tablet 11 5 07/30/19 26 Active hyoscyamine (OSCIMIN) 0.125 mgIndications:Uri nary Incontinence Take 1 tablet (0.125 mg total) by mouth every 6 (six) hours as needed for cramping 180 tablet 5 Active Active Problems Problem Noted Date Diagnosed Date Gastroesophageal reflux disease 07/21/2024 Belching 07/21/2024 Chest pain 07/21/2024 Hx of colonic polyps 07/21/2024 Nocturnal muscle cramps 02/13/2024 Assessment & Plan (02/13/2024 7:29 AM DEAN OF STUDENT SERVICES): - encouraged magnesium use daily - check labs Encounter for annual wellness exam in Medicare p atient 01/30/2023 Assessment & Plan (02/13/2024 7:29 AM DEAN OF STUDENT SERVICES): - Reviewed with the patient BMI, blood [...] 05/19/2022 Assessment & Plan (02/13/2024 7:29 AM DEAN OF STUDENT SERVICES): - stable SI joint pain, likely due [...] scheduled. Assessment & Plan (05/19/2022 11:18 AM DEAN OF STUDENT SERVICES): Chronic problem, reportedly present times about 2 [...] needed. Assessment & Plan (05/31/2022 4:01 PM DEAN OF STUDENT SERVICES): She has some pain or discomfort in [...] 05/07/2021 Overview (05/30/2021): See scanned report from [place]. Assessment & Plan (01/30/2023 10:10 AM CDT): [...] on a sleep study ordered by the [facility]. She started on CPAP and [...] 02/07/2021 Assessment & Plan (05/18/2024 10:14 AM DEAN OF STUDENT SERVICES): Overall, stable cognitive testing. Continue donepezil/Aricept 5 mg daily. We spoke of starting a low dose antidepressant such as escitalopram/Lexapro to help with her behavioral changes. Family would like to think about it and will reach out if they wish to start her on it. Follow-up in 6 months or sooner if need be. Assessment & Plan (02/13/2024 7:28 AM DEAN OF STUDENT SERVICES): - stable - continue aricept Assessment & [...] She went to the memory clinic at [facility]. She was diagnosed with Alzheimer's dementia. It [...] Overview (10/11/2018): Carotid Doppler on 10/10/18 at [facility]: No sonographic evidence of significant stenosis [...] 07/05/2016 Assessment & Plan (02/13/2024 7:28 AM DEAN OF STUDENT SERVICES): - stable - continue diet control Assessment [...] Hypertension Assessment & Plan (02/13/2024 7:27 AM DEAN OF STUDENT SERVICES): - well controlled - since very well [...] abnormalities. Assessment & Plan (02/17/2022 1:30 PM DEAN OF STUDENT SERVICES): She has had intermittent trouble swallowing for [...] resolves. Assessment & Plan (02/17/2022 1:29 PM DEAN OF STUDENT SERVICES): She developed some laryngitis this morning. Apparently it has been a recurring problem ever since she was a little girl . It lasts anywhere from a few hours to a week or so. 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 We will monitor clinically. Resolved Problems Problem [...] follow-up with the memory care specialists at [facility] on Saturday of this week. We will see what they have to say. Assessment & Plan (11/06/2020 5:22 PM CDT): We performed a basic evaluation including B12, TSH, CMP, and CT head, all of which are unremarkable except for mild small-vessel disease on the head CT. 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 Other causes are possible. We will refer her to the [facility] memory clinic for further evaluation and recommendations. [...] refer her to the Memory Clinic at [facility]. Overweight 09/29/2018 08/01/2022 Overview (08/01/2022): Obesity -> [...] Overview (10/07/2018): See [facility] report. Follow-up at [facility] negative. Assessment & Plan (10/20/2017 1:05 [...] on file Legal Sex Female 2:58 PM DEAN OF STUDENT SERVICES Gender Identity Not on file Sexual Orientation [...] 08/05/2024 8:51 AM CDT Plan of Treatment Not on file Procedures Procedure Name Priority Date/Time Associated Diagnosis [...] female with given history of postmenopausal state. 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[employer] SL (S/N [id number]) CLINICAL INFORMATION: Current height: 63 inches Maximum [...] by Andrew Echeverria M.D., MD: Report ID: [id number] Reading Location: [place] [address] Izaiah Hess MD IM DXA PROCEDURES Final Resu lt * Hepatitis C antibody (10/19/2020 9:58 AM CDT) Pathologist [facility] Hep C Ab Nonreactive Nonreactive VAN FLOR [...] Final Result Performing Organization Address City/State/ZIP [place] Phone Number VAN [phone] [address] Department [place] [address] * COLONOSCOPY (10/31/2018) Colonoscopy Abnormal Comment:Multiple polyps alon rimma, [facility]. [place] Tristin Whiteside DO HEALTH MAINTENANCE Final Resul t from Last 3 Months or Most Recently Relevant to Health Maintenance Insurance [facility] MEDICARE MEDICARE AETNA [address] [place] [address] MEDICARE T SENIOR SUPPLEMENT MEDICARE AETNA SENIOR SUPPLEMENT Care Teams Secondary School Teacher Relationship Specialty Start Date End Date Federico Celaya MD [address] [place] [id number] PCP - General Family Medicine 01/02/23 Zayra Ramsey MD PhD [facility] [address] [place] [address] Referring Physician Neurology 02/07/21
--- OUTSIDE RECORDS SUMMARY | 2024-08-25 00:11 | XMS_ITS | Encounter Summary ---
Author Organization [facility] Address [address] [place] [address] Phone Care Team Providers Care Air Pollution Analyst Name Role Phone Izaiah Hess MD Primary Care Provider [phone] Zayra Ramsey MD PhD Unavailable [phone] Federico Celaya MD Primary Care Provider + Encounter Details Date Type Department Care Team (Late st Contact Info) Description 05/07/2021 Orders Only [facility] [address] [place] [address] Izaiah Hess MD [address] [address] Social History Tobacco Use Types Packs/Day Years Used Date Smoking Tobacco: Never Smokeless Tobacco: Never PHQ-2 Answer Date Recorded PHQ-2 Total Score (If total score is 3 or more points, staff should administer the PHQ-9) 0 10/19/2020 Comments No Sex and Gender Information Value Date Recorded Sex Assigned at Not on file Legal Sex Female 2:58 PM RODEO RIDER Gender Identity Not on file Sexual Orientation Not on file documented as of this encounter Plan of Treatment Not on file documented as of this encounter Procedures Procedure Name Priority Date/Time Associated Diagnosis Comments SLEEP LAB/STUDY - RESULT 05/07/2021 documented in this encounter Results * SLEEP LAB/STUDY - RESULT (05/07/2021) us Izaiah Hess MD Final Result documented in this encounter Visit Diagnoses Not on filedocumented in this encounter Care Teams Air Pollution Analyst Relationship Specialty Start Date End Date Izaiah Hess MD [address] [address] PCP - General 07/04/16 01/01/23 Federico Celaya MD [facility] [address] PCP - General Family Medicine 01/02/23 Zayra Ramsey MD PhD [address] [place] [address] Referring Physician Neurology 02/07/21 documented as of this encounter
--- OUTSIDE RECORDS SUMMARY | 2024-08-25 00:11 | XMS_ITS | Encounter Summary ---
Author Organization [facility] Healthcare Address [address] [place] [address] Care Team Providers Care Television Presenter Name Role Phone BraulioZayra MD PhD Unavailable [phone] Federico Celaya MD Primary Care Provider + Reason for Visit * Reason Onset Date Comments Recommendation Request 08/20/2024 Encounter Details Date Type Department Care Team ([facility] st Contact Info) Description 08/20/2024 Telephone [facility] Primary Care [address] [facility] [address] [place] [phone] Federico Celaya MD [facility] [address] [place] [address] Recommendation Request Social History Tobacco Use Types Packs/Day Years [...] on file Legal Sex Female 2:58 PM NURSE INTERN Gender Identity Not on file Sexual Orientation Not on file documented as of this encounter Miscellaneous Notes * Telephone Encounter - Denise Lezama - 08/20/2024 1:53 PM CDT Recommendation Request Note: This request is for a specialty recommendation, not an insurance referral. Specialty: Cardiology Why does the patient want to go to this specialist? Lizzie with [facility] states patient is supposed to have an upper endoscopy done with them. (Patient was aditya for this withDr. Fields but she was not satisfied with care she was receiving there) Patient has been having belching episodes where she gets out of breath. She was seen for this at their ER on 07/31 where they [address]id a CT of Chest Abdomen Pelvis where they found paracardial effusion. Ino does not want toperform upper endo until patient sees a runner man because they are leery that the paracardial effusion could be causing her symptoms. Lizzie said their GI department at [place] (Dr. Carranza's office) is booked out to October for new patients so she is wondering if Dr. Celaya could refer patient to a runner man that would get her in sooner than later because her family is wanting her to be able to get the upper endo dario. Additional Comments/Concerns: - Does message need to be routed? Yes-Action Needed documented in this encounter Plan of Treatment Not on file documented as of this encounter Visit Diagnoses Not on filedocumented in this encounter Care Teams Television Presenter Relationship Specialty Start Date End Date Federico Celaya MD [address] [place] [address] PCP - General Family Medicine 01/02/23 Zayra Ramsey MD PhD [address] [place] [address] Referring Physician Neurology 02/07/21 documented as of this encounter
--- OUTSIDE RECORDS SUMMARY | 2024-08-25 00:11 | XMS_ITS | Clinical Summary ---
Author Organization [facility] Address [address] [facility], [address] [address] Phone Care Team Providers Care Equipment Operator Warehouse Name Role Phone Izaiah Hess MD Primary Care Provider [phone] Allergies Active Allergy Reactions Criticality Noted Date [...] Insurance MEDICARE [employer] Care Teams Equipment Operator Warehouse Relationship Specialty Start Date End Date Izaiah Hess MD [employer], [address] [place] [address] PCP - General Infectious Disease 04/11/17
[2024-08-25 08:46] VITALS: BP 140/97; PULSE 93; RESP 16; TEMP 36.5; O2SAT 100; BMI 21.9
[2024-08-25] MEDS: LACTATED RINGERS 1,000 ML 150 ML IV CONT (08:54)
--- NOTE | 2024-08-25 09:17 | P.PNAN_ITS ---
Anes - Initial Pre Proc Eval Procedure: Operation Date: 08/25/24 10:00 Proposed Procedures p Esophagogastroduodenoscopy - Beka Liao MD Date/Time: 08/25/24 09:17 Surgeon: Beka Liao MD Pre Op Diagnosis: Eructation,Chest pain, unspecified,GERD Patient Data Age: 79 Gender: F Height: 1.6 m Weight: 56.3 kg Last Vital Signs Temp 97.7 F 08/25/24 08:46 Pulse 93 08/25/24 08:46 Resp 16 08/25/24 08:46 BP 140/97 H 08/25/24 08:46 Pulse Ox 100 08/25/24 08:46 O2 Del Method Room Air 08/25/24 08:46 Allergies Allergy/AdvReac Type Severity Reaction Status Date / Time levofloxacin (From Levaquin) Allergy Severe Swelling Verified 08/25/24 08:45 bacitracin (From Neosporin Allergy Intermediate burning Verified 08/25/24 08:45 ([id number])) skin iron Allergy Intermediate rash Verified 08/25/24 08:45 neomycin (From Neosporin Allergy Intermediate burning Verified 08/25/24 08:45 ([id number])) skin polymyxin B (From Neosporin Allergy Intermediate burning Verified 08/25/24 08:45 ([id number])) skin codeine AdvReac Intermediate Nausea and Verified 08/25/24 08:45 Vomiting Home Medications ?Medication ?Instructions ?Recorded ?Confirmed ?Type donepezil 5 mg tablet 5 mg PO QHS 08/06/24 08/25/24 History famotidine 40 mg tablet 40 mg PO HS 08/06/24 08/25/24 History hyoscyamine sulfate 0.125 mg tablet 0.125 mg PO QID PRN spasms 08/06/24 08/21/24 History lisinopril 5 mg tablet 5 mg PO DAILY 08/06/24 08/25/24 History pantoprazole 40 mg tablet,delayed 40 mg PO Q12H 08/06/24 08/25/24 History release PREVAGEN 1 tablet PO DAILY 08/19/24 08/25/24 History Patient hx anesthesia problems: none Family hx anesthesia problems: none Results Review: All pre-operative results and documents have been reviewed as part of the pre- operative evaluation. [facility] Past Medical History Medical History (Updated 08/21/24 @ 13:20 by Ward Hawley DO) Pericardial effusion HTN (hypertension) Colon polyps Dementia Belching Chest pain GERD (gastroesophageal reflux disease) Social History Social History Smoking status: Never smoker Alcohol intake: never Substance use: never Substance use type: does not use Living arrangements: with family Spiritual care concerns: No Anes - Eval Final PreProcedure Day of Procedure 08/25/24 09:17 Patient weight: normal Heart: regular rate and rhythm Lungs: clear to auscultation Airway: Mallampati scale class II Neurological: alert and oriented Last oral intake: >/= 8 hours ASA classification: III Emergent: no Anesthetic plan: proceed Anesthesia type and monitoring: general GIVS and standard monitoring Results Review: All pre-operative results and documents have been reviewed as part of the pre- operative evaluation. Informed Consent: The patient's anesthetic plan and its attendant risks and benefits were discussed with the patient/family/POA. Questions were solicited and answers provided to the satisfaction of the patient/family/POA.
--- NOTE | 2024-08-25 09:37 | WPDHPUPDATE1 ---
History and Physical Update Update Date/Time: 08/25/24 09:37 History and Physical has been reviewed, including an updated exam of the patient. There are NO changes in the patient's condition. Risks, benefits, and alternatives have been discussed and questions answered. Patient agrees to proceed with procedure.
[2024-08-25 09:51] VITALS: BP 138/65; PULSE 81; RESP 21; O2SAT 99
[2024-08-25 10:01] VITALS: BP 139/59; PULSE 65; RESP 19; O2SAT 99
[2024-08-25 10:11] VITALS: BP 142/61; PULSE 72; RESP 21; O2SAT 99
== END 2024-08-25 10:24 | disposition home or self-care (01) ==
PROVIDERS: PCP Family Medicine; Referring Provider Nurse Practitioner Family; Visit Provider Internal Medicine Gastroenterology
PROC: 0DJ08ZZ Inspection of Upper Intestinal Tract, Via Natural or Artificial Opening Endoscopic (ICD-10-PCS; CPT 43239; principal; 2024-08-25 10:00)
DX: K21.9 Gastro-esophageal reflux disease without esophagitis (principal); I10 Essential (primary) hypertension; F03.90 Unspecified dementia, unspecified severity, without behavioral disturbance, psychotic disturbance, mood disturbance, and anxiety; I31.39 Other pericardial effusion (noninflammatory); Z86.0100 Personal history of colon polyps, unspecified
CPT/HCPCS: 43239; 88305; J2003; J2704; J7120